=== PATIENT | female | born 1970 | race Caucasian/White ===

== ENCOUNTER 2018-01-30 12:00 | Outpatient (REF) | payer BC, SELFPAY ==
--- NOTE | 2018-01-30 11:00 | PAPFT_PTH ---
PATIENT: Shirlene Gregorio LOC: [facility] U#:[id number] AGE/SX: 47/F ROOM: RE01/30/[address]: Raeann Edwards MD, DC : 1970 BED: DIS: 01/30/2018 SPEC #: [id number] RECD: 01/30/18 12:45 STATUS: LIANNE RECassy #: [id number] SHASHA: 01/30/18 11:[address]: Raeann Edwards DEPT: [facility] Cytology RECD BY: Najma Finley Tissues: 1 - CX/ENDOCX FOR PAP SMEARS Procedures: PAP THIN PREP/UVM Screening HPV DNA PROBE Comments: [id number]
== END 2018-01-30 12:20 ==
LOC: LBN 12:00
PROVIDERS: PCP Family Medicine; Visit Provider Family Medicine
DX: Z12.4 Encounter for screening for malignant neoplasm of cervix (principal); Z11.51 Encounter for screening for human papillomavirus (HPV)
CPT/HCPCS: 88142; 87624

== ENCOUNTER 2018-01-30 13:18 | Outpatient (CLI) | payer BC, SELFPAY ==
--- NOTE | 2018-01-30 13:12 | DI.RAD_ITS ---
SYMPTOM/DIAGNOSIS: RT SHOULDER PAIN, M25.511 RIGHT SHOULDER: 01/30 Five views were obtained. There are minimal degenerative changes of the glenohumeral and acromioclavicular joins. No other significant findings.
== END 2018-01-30 13:38 ==
PROVIDERS: PCP Family Medicine; Visit Provider Family Medicine
DX: M25.511 Pain in right shoulder (principal); M19.011 Primary osteoarthritis, right shoulder
CPT/HCPCS: 73030

== ENCOUNTER 2018-08-07 00:56 | Outpatient (CLI) | payer BC, SELFPAY ==
--- NOTE | 2018-08-07 08:54 | DI.MRI_ITS ---
SYMPTOM/DIAGNOSIS: RT SHOULDER PAIN, M25.511, ? ROTATOR CUFF TEAR RIGHT SHOULDER MRI: Routine noncontrast examination was performed. The supraspinatus, infraspinatus, teres minor and subscapularus tendons are all intact. There is no evidence of a rotator cuff tear. The rotator cuff muscles show normal signal and size. No significant muscular fatty atrophy is identified. The biceps tendon has a normal appearance and location. The glenoid labrum is grossly unremarkable on this noncontrast examination. There are hypertrophic changes seen at the acromioclavicular joint. Marrow signal is otherwise within normal limits. No evidence of an occult fracture or avascular necrosis is seen. The ligaments appear intact. The articular cartilage at the glenohumeral joint appears grossly unremarkable. No soft tissue mass or focal fluid collection is appreciated. There is a trace amount of fluid seen in the subacromial bursa. IMPRESSION: 1. No evidence of a rotator cuff or labral tear on this noncontrast examination. 2. Mild degenerative changes of the acromioclavicular joint. 3. Small amount of fluid seen in the subacromial bursa which may represent a bursitis.
== END 2018-08-07 01:16 ==
PROVIDERS: PCP Family Medicine; Visit Provider Student in an Organized Health Care Education/Training Program
DX: M25.511 Pain in right shoulder (principal); M19.011 Primary osteoarthritis, right shoulder; M75.51 Bursitis of right shoulder
CPT/HCPCS: 73221

== ENCOUNTER 2019-10-26 08:40 | Outpatient (CLI) | payer SELFPAY ==
[2019-10-27 11:23] LABS: COVID-19 RT-PCR UVMMC Result Negative (Negative)
== END 2019-10-26 09:00 ==
PROVIDERS: PCP Family Medicine; Visit Provider Family Medicine
DX: Z11.59 Encounter for screening for other viral diseases (principal)
CPT/HCPCS: U0003

== ENCOUNTER 2020-08-21 03:42 | Outpatient (CLI) | payer SELFPAY ==
[2020-08-21 12:40] LABS: HCT 39.6 % (36.0-46.0); HGB 13.1 g/dL (11.2-15.7); MCH 29.8 pg (27.0-33.0); MCHC 33.1 % (32.0-36.0); MCV 90.2 fL (80-95); MPV 9.8 fL (8.0-11.0); Platelet Count 267 10^3/uL (130-400); RBC 4.39 10^6/uL (3.93-5.22); RDW 12.2 % (11.7-14.6); RDW-SD 40.3 fL; WBC 5.99 10^3/uL (4.4-10.8)
[2020-08-21 12:51] LABS: Iron 65 ug/dL (50-170); Total Iron Binding Capacity 349 ug/dL (250-450); Transferrin Sat 19 % (15-50)
[2020-08-21 12:53] LABS: Hemoglobin A1C 5.4 % (<5.7)
[2020-08-21 13:14] LABS: Vitamin D 25 Total 21.9 ng/mL (30-100)
[2020-08-21 13:16] LABS: ALT 39 U/L (14-59); AST 30 U/L (15-37); Albumin 3.7 g/dL (3.4-5.0); Alkaline Phosphatase 72 U/L (46-116); BUN 14 mg/dL (7-18); Bilirubin, Total 0.4 mg/dL (0.2-1.0); Calcium 8.7 mg/dL (8.5-10.1); Calculated LDL 86 mg/dL (<100); Chloride 105 mmol/L (98-107); Cholesterol 154 mg/dL (<200); Estimated GFR 58.69 (mL/min/1.73m2); Ferritin 66 ng/mL (8-252); Folate 18.7 ng/mL (8.6-20.0); Glucose 98 mg/dL (74-106); HDL Cholesterol 55 mg/dL (40-60); Potassium 4.4 mmol/L (3.5-5.1); Sodium 140 mmol/L (136-145); TSH (W/Ref FT4) 1.82 uIU/mL (0.36-3.74); Total Protein 7.6 g/dL (6.4-8.2); Triglyceride 68 mg/dL (<150); Vitamin B12 329 pg/mL (193-986)
[2020-08-21 14:06] LABS: Absolute Basophil Count 0.03 10^3/uL (0.0-0.2); Absolute Eosinophil Count 0.15 10^3/uL (0.0-0.7); Absolute Lymphocyte Count 1.78 10^3/uL (1.2-3.4); Absolute Monocyte Count 0.77 10^3/uL (0.1-0.8); Absolute Neutrophil Count 3.13 10^3/uL (1.2-6.7); Basophils % 0.5; Eosinophils % 2.6; Lymphocytes % 30.4; Monocytes % 13.1; Neutrophils % 53.4
[2020-08-23 10:28] LABS: Thiamine (Vitamin B1), WB 149 nmol/L (70-180)
== END 2020-08-21 03:43 | disposition home or self-care (01) ==
LOC: LOS 03:42
PROVIDERS: PCP Family Medicine; Visit Provider Family Medicine
DX: Z00.00 Encounter for general adult medical examination without abnormal findings (principal); E11.9 Type 2 diabetes mellitus without complications; G47.30 Sleep apnea, unspecified; G43.009 Migraine without aura, not intractable, without status migrainosus
CPT/HCPCS: 36415; 80053; 80061; 82306; 85027; 82607; 82728; 82746; 83036; 83540; 83550; 84425; 84443; 85007

== ENCOUNTER 2021-04-09 01:46 | Outpatient (CLI) | payer BC, SELFPAY ==
--- NOTE | 2021-04-09 10:52 | DI.MAMMO_ITS ---
Exam(s) MAMMO SCREENING EXAM: MAMMO SCREENING CLINICAL HISTORY: screening,Z12.39. TECHNIQUE: Bilateral full field digital CC and MLO mammographic images were obtained with 3D tomosyn thesis and utilizing computer aided detection (CAD). COMPARISON: None. This is a baseline mammogram on this 50-year-old patient. FINDINGS: No significant radiograph findings in the right breast. Left breast there is some asymmetric tissue at approximately 12 o'clock position. Located 8 cm in fr om nipple on MLO view. Recommend spot compression CC and MLO views as well as a straight lateral vie w of the left breast. Also possible ultrasound. There are benign microcalcifications in both breasts but no malignant-appearing microcalcification gr oups. No skin thickening-retraction. IMPRESSION: No radiographic evidence of malignancy in the right breast. Left breast findings as above. Spot compression views recommended. Also breast ultrasound. BI-RADS Category 0 - Assessment Incomplete: Need additional imaging evaluation Breast Density - Category C - Heterogeneously dense Breast density Category C or D implies that the patient has dense breast tissue. Dense breast tissue can make it harder to find cancer on a mammogram. Dense breast tissue is also associated with an incr eased risk of breast cancer. This information about the result of the mammogram report was provided to the patient to raise their awareness. Use this report when you speak with the patient about their risks for breast cancer, which includes their family history. At that time, you may recommend additional screening tests (Ultrasoun d or MRI) as these tests may add significant information. A negative radiographic report should not delay biopsy if a dominant or clinically suspicious mass is present. Up to ten percent of cancers are not identified on mammography. A negative report may reinforce clinical impression. Adenosis and dense breasts may obscure an underlying neoplasm. False positive reports average 6 to 10%. Patient will receive a letter notifying them of these results.
--- NOTE | 2021-04-17 | DI.US_ITS ---
Exam(s) MG MAMMO SCREEN CALL BACK UNI US BREAST LT COMPLETE EXAM: MG MAMMO SCREEN CALL BACK UNI and U/S breast LT complete CLINICAL HISTORY: ASYMMETRIC TISSUE 12 O'CLOCK POSITION 8 CM FROM NIPPLE, LT BREAST, R92.8. TECHNIQUE: Craniocaudal and mediolateral oblique Full Field Digital Mammography views of the left br east with Computer Aided Diagnosis followed by Tomosynthesis and left breast ultrasound. COMPARISON: Priors available for comparison. FINDINGS: Mammography/Tomosynthesis: Masses/Architectural Distortion: None seen. Microcalcifictions: No suspicious pleomorphic-type are seen. Skin Thickening/Nipple Retraction: None. Left breast US: A complete left breast ultrasound was performed. Echotexture: Normal appearance of the glandular tissue. Shadowing: No suspicious foci. Cyst: None. Solid lesions: None seen. Ductal dilation: None. IMPRESSION: 1. No evidence of malignancy is noted. 2. Unless there is more urgent need, follow-up screening mammography is recommended, as per [place] [employer] guidelines. 3. The findings were discussed with the patient on the date of the examination. BI-RADS Category 1 - Negative Breast Density - Category C - Heterogeneously dense Breast density Category C or D implies that the patient has dense breast tissue. Dense breast tissue can make it harder to find cancer on a mammogram. Dense breast tissue is also associated with an incr eased risk of breast cancer. This information about the result of the mammogram report was provided to the patient to raise their awareness. Use this report when you speak with the patient about their risks for breast cancer, which includes their family history. At that time, you may recommend additional screening tests (Ultrasoun d or MRI) as these tests may add significant information. A negative radiographic report should not delay biopsy if a dominant or clinically suspicious mass is present. Up to ten percent of cancers are not identified on mammography. A negative report may reinforce clinical impression. Adenosis and dense breasts may obscure an underlying neoplasm. False positive reports average 6 to 10%. Patient will receive a letter notifying them of these results.
== END 2021-04-09 02:06 ==
PROVIDERS: PCP Family Medicine; Visit Provider Family Medicine
DX: Z12.31 Encounter for screening mammogram for malignant neoplasm of breast (principal); R92.8 Other abnormal and inconclusive findings on diagnostic imaging of breast
CPT/HCPCS: 77063; 77067

== ENCOUNTER 2021-04-17 00:59 | Outpatient (CLI) | payer BC, SELFPAY ==
--- NOTE | 2021-04-17 13:00 | DI.MAMMO_ITS ---
Exam(s) MG MAMMO SCREEN CALL BACK UNI US BREAST LT COMPLETE EXAM: MG MAMMO SCREEN CALL BACK UNI and U/S breast LT complete CLINICAL HISTORY: ASYMMETRIC TISSUE 12 O'CLOCK POSITION 8 CM FROM NIPPLE, LT BREAST, R92.8. TECHNIQUE: Craniocaudal and mediolateral oblique Full Field Digital Mammography views of the left br east with Computer Aided Diagnosis followed by Tomosynthesis and left breast ultrasound. COMPARISON: Priors available for comparison. FINDINGS: Mammography/Tomosynthesis: Masses/Architectural Distortion: None seen. Microcalcifictions: No suspicious pleomorphic-type are seen. Skin Thickening/Nipple Retraction: None. Left breast US: A complete left breast ultrasound was performed. Echotexture: Normal appearance of the glandular tissue. Shadowing: No suspicious foci. Cyst: None. Solid lesions: None seen. Ductal dilation: None. IMPRESSION: 1. No evidence of malignancy is noted. 2. Unless there is more urgent need, follow-up screening mammography is recommended, as per [place] [employer] guidelines. 3. The findings were discussed with the patient on the date of the examination. BI-RADS Category 1 - Negative Breast Density - Category C - Heterogeneously dense Breast density Category C or D implies that the patient has dense breast tissue. Dense breast tissue can make it harder to find cancer on a mammogram. Dense breast tissue is also associated with an incr eased risk of breast cancer. This information about the result of the mammogram report was provided to the patient to raise their awareness. Use this report when you speak with the patient about their risks for breast cancer, which includes their family history. At that time, you may recommend additional screening tests (Ultrasoun d or MRI) as these tests may add significant information. A negative radiographic report should not delay biopsy if a dominant or clinically suspicious mass is present. Up to ten percent of cancers are not identified on mammography. A negative report may reinforce clinical impression. Adenosis and dense breasts may obscure an underlying neoplasm. False positive reports average 6 to 10%. Patient will receive a letter notifying them of these results.
== END 2021-04-17 01:19 ==
PROVIDERS: PCP Family Medicine; Visit Provider Family Medicine
DX: Z12.31 Encounter for screening mammogram for malignant neoplasm of breast (principal); R92.8 Other abnormal and inconclusive findings on diagnostic imaging of breast
CPT/HCPCS: 76642; 77063; 77067

== ENCOUNTER 2021-06-05 01:19 | Outpatient (CLI) | payer BC, SELFPAY ==
[2021-06-05 11:39] LABS: Source Nasal/Nares
[2021-06-05 13:51] LABS: COVID-19 PCR Negative (Negative)
== END 2021-06-05 01:20 | disposition home or self-care (01) ==
PROVIDERS: PCP Family Medicine; Visit Provider Surgery
DX: Z20.822 Contact with and (suspected) exposure to COVID-19 (principal); Z01.818 Encounter for other preprocedural examination
CPT/HCPCS: 87635

== ENCOUNTER 2021-06-08 07:42 | Day surgery (SDC) | payer BC, SELFPAY ==
--- NOTE | 2021-06-08 06:42 | HPE_ITS ---
Assessment and Plan Assessment and plan (1) Encounter for screening colonoscopy: Status: Acute Assessment and plan: The patient is here for Colonoscopy pre-op. She has no family history of colon cancer. She has not had any bowel habit changes. -Discussed colonoscopy bowel prep as well as the procedure. Discussed possible complications of the procedure to include bleeding, pain, perforation, missed small lesion/polyp, sore throat, aspiration and adverse reaction to the medications. Questions were answered to patient?s satisfaction. No guarantees were implied or given. P// Colonoscopy under sedation. History of Present Illness Narrative: 50 y/o female with history of anxiety, miagraines and sleep apnea presents for her first colonoscopy screening pre-op. She denies a family history of colon cancer. She denies any changes in bowel habits including bloody or black tarry stools, abdominal pain, diarrhea or constipation. She denies constitutional symptoms. Denies use of marijuana or any other recreational or illegal drugs. She denies chest pain, palpitations, dyspnea or dyspnea with exertion. She denies prior history or family history of adverse reactions or complications with anesthesia. The patient denies any history of stroke, VA, bleeding or clotting disorders. She denies having any implanted metal in her body. There have been no new health concerns since she was seen in the office. Review of Systems Cardiovascular Cardiovascular: Denies chest pain, Denies chest pain at rest, Denies irregular heart rhythm, Denies dyspnea and Denies dyspnea on exertion Respiratory Respiratory: Denies cough, Denies dyspnea and Denies dyspnea on exertion Gastrointestinal Gastrointestinal: Reports as per HPI Genitourinary Genitourinary: Denies dysuria, Denies urinary incontinence and Denies urinary urgency Endocrine Endocrine: Reports system reviewed and no additional complaints, except as documented Hematologic/Lymphatic Hematologic/Lymphatic: Denies easy bruising and Denies lymphadenopathy [facility] All Active Problems Anxiety (Chronic 06/17/16) 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) [facility] [place] [facility] Chronic pain of left knee (Chronic 08/14/15) Insomnia disorder, with other sleep disorder, recurrent (Chronic 08/16/16) Migraine without aura and without status migrainosus, not intractable (Chronic 10/23/15) Sleep apnea (Chronic 10/17/14) [facility] [place];SLEEP [facility]AG[facility] Vitamin D deficiency (Chronic 10/06/11) Annual physical exam (Acute) Encounter for screening colonoscopy (Acute) Vertigo (Acute) Herpes zoster (Acute) Medical History Anemia 10/06/11 Anemia (10/06/11) Calculus of gallbladder and bile duct w/cholecystitis w/o obstruction (10/12/17) Common bile duct stone (10/12/17) Fatigue (07/11/17) History of seizure 08/14/15 History of seizure (08/14/15) 10 years old Lateral epicondylitis of left elbow (08/14/15) Left tennis elbow 08/14/15 Right rotator cuff tendonitis Right shoulder pain Sebaceous cyst 02/10/15 Sebaceous cyst (02/10/15) Vertigo 08/04/15 Vertigo (08/14/15) Surgical History Arthroplasty of knee 09/04 RIGHT 1994 RIGHT H/O arthroscopy of knee right x 2 ---1994; 2005 History of arthroscopy of knee Hx of cholecystectomy Repair, ACL (~2005) Family History Mother No problems noted. Father , age 78 Heart disease Myocardial infarction Neoplasm BLADDER Sister Depression Brother No problems noted. Maternal Grandfather No problems noted. Paternal Grandfather Heart disease Maternal Grandmother Diabetes Paternal Grandmother Heart disease Sister No problems noted. Sister No problems noted. Sister No problems noted. Son No problems noted. Son No problems noted. Social History Smoking/Tobacco Use Status: Never Second Hand Exposure: Yes (as a child) Smoking risk assessment performed?: Yes Alcohol Intake: current Alcohol Intake frequency: 0-2 drinks per day Alcohol type: wine and hard liquor Drug use: Never Substance use type: does not use Caregiver/Support person: No Household members: significant other and other Details: DONI AND ESTEPHANIE Housing: house Communication Needs: None current occupation: [employer] Pets and animals: Yes Pets and animals: farm animals Sexually active: Yes Do you think of yourself as: straight/heterosexual Current gender identity: female What is your relationship status?: living with partner How often do you talk on the phone with friends or family?: three or more times per week How often do you get together with friends or relatives?: twice per week How often do you attend catholic or congregational services?: decline to answer Do you belong to any clubs or organized social groups?: yes Panel score (0-1 are the most socially isolated patients): 3 What type of physical activity do you participate in: none Duration: < 15 minutes/day Cari/Hinduism: No preference Special cari needs: No Seatbelt use: always Drive intox or ride w/intox local bulk driver: No Do you feel safe at home: Yes Do you feel safe in your relationship?: Yes Meds Allergies and Home Medications Allergies Allergy/AdvReac Type Severity Reaction Status Date / Time No Known Allergies Allergy Unverified 06/08/21 08:07 Home Medications Medication Instructions Recorded Confirmed Type bupropion HCl 300 mg 24 hr tablet, 300 mg PO DAILY #90 tab-cap 06/05/20 06/08/21 Rx extended release valacyclovir 1 gram tablet 1,000 mg PO TID #21 tab 03/17/21 06/08/21 Rx bisacodyl 5 mg tablet,delayed 5 mg PO ONCE #4 tab 04/20/21 06/08/21 Rx release multivitamin 1 tab PO DAILY 04/20/21 06/08/21 History polyethylene glycol 3350 17 238 g PO ONCE #238 g 04/20/21 06/08/21 Rx gram/dose oral powder nystatin 100,000 unit/gram topical 1 applic TOPICAL BID #30 g 05/01/21 06/08/21 Rx powder Exam Const General: healthy appearing and comfortable Resp Effort & Inspection: normal respiratory effort Auscultation: clear to auscultation bilaterally Cardio Rate: regular rate Rhythm: regular rhythm Heart Sounds: no click, no gallops and no murmurs
--- NOTE | 2021-06-08 06:45 | W.COLOREPORT ---
Colonoscopy Report Date of procedure: 06/08/21 Pre-op diagnosis general: Colon Cancer Screening Post-op diagnosis procedure note: other (rectal polyps) Procedure: Colonoscopy with polypectomy Surgeon: Chela Rivera Anesthesia Type: General:No Airway (Arleen Moon CRNA) Estimated blood loss (mL): 3 Pathology: other (rectal polyps x4) Complications: None Disposition: same day Indications: The patient is here for Colonoscopy pre-op. She has no family history of colon cancer. She has not had any bowel habit changes. -Discussed colonoscopy bowel prep as well as the procedure. Discussed possible complications of the procedure to include bleeding, pain, perforation, missed small lesion/polyp, sore throat, aspiration and adverse reaction to the medications. Questions were answered to patient?s satisfaction. No guarantees were implied or given. Prep: Miralax/Dulcolax Procedure Start Time: 09:39 Procedure End Time: 10:05 Retraction Time: 14 minutes Findings: 4 small rectal polyps Procedure Description: After informed consent was obtained the patient was taken to the procedure room and placed in a left decubitous position. Monitors were applied and a time out was done. The patients name, date of , procedure, allergies to medications and metal in their body was reviewed. The patient was then sedated. Once sedated and comfortable a rectal exam was done. External exam was normal. Internal exam revealed a normal sphincter tone and no palpable masses. The scope was then introduced and retro-flexed. No internal hemorrhoids, polyps or masses were identified on retro-flexion. The scope was then advanced to the cecum without difficulty. The ileocecal vlave and appendiceal orifice were identified. The prep was good. The scope was then slowly retracted over 14 minutes back into the rectum. Polyps were removed with cold forceps in the rectum x4. There was no diverticulosis noted. The scope was removed and the patient was woken up and taken back to Same day surgery in stable condition. The patient tolerated the procedure well and there were no immediate complications. Follow up: The patient should follow up in 5-10 years, depending on the pathology results, unless they develop changes in bowel habits or other new gastrointestinal complaints.
--- NOTE | 2021-06-08 06:46 | W.PM.DSUDISC ---
Discharge Plan Disposition Patient Disposition: HOME Condition: Good Discharge Details Reason For Visit: Colonoscopy Attending Provider: Chela Rivera Primary Care Provider: Raeann Edwards Home Meds and New Rx's Prescriptions: Continued bupropion HCl 300 mg tablet extended release 24 hr 300 mg PO DAILY Qty: 90 RF: 12 multivitamin [Daily Multi-Vitamin] Tablet 1 tab PO DAILY RF: 0 valacyclovir 1 gram tablet 1,000 mg PO TID Qty: 21 RF: 0 nystatin 100,000 unit/gram powder 1 applic topical BID Qty: 30 RF: 0 Discontinued polyethylene glycol 3350 17 gram/dose powder 238 g PO ONCE Qty: 238 RF: 0 bisacodyl [Dulcolax (bisacodyl)] 5 mg tablet,delayed release (DR/EC) 5 mg PO ONCE Qty: 4 RF: 0 Discharge Instructions Instructions: Colorectal Polyps (DC) Additional Instructions: Findings: 4 small polyps Results: you will recieve a letter in the mail in about 10-14 days with your results Please call if you develop: fevers >101.5 Nausea or Vomiting Abdominal pain that is not transient Rectal bleeding that is more then a tbsp A hard abdomen and inability to pass gas DAY SURGERY UNIT POST ENDOSCOPY INSTRUCTIONS Instructions for everyone who is given Anesthesia: For your safety, please do the following for the next 24 Hours: a. Do not drive or operate dangerous equipment b. Do not drink alcohol beverages or use any recreational drugs for the first 24 hours or while taking pain medications. The medications in your body may have a reaction that can be dangerous. c. Do not make any important decisions or sign any important papers 1. Generally there are no restrictions on your activity after a day or so has gone by, but you may feel a bit fatigued for a few days. 2. After you arrive home you may have a light meal and return to a normal diet as you can tolerate it without feeling sick to your stomach. 3. After surgery, you may feel pain or discomfort. This should be only transient, but if it persists please contact your doctor. 4. If there are any questions regarding the findings of your procedure, please feel free to contact your doctor. 6. If you are unable to contact your doctor with a problem, contact the hospital at [phone]. 7. Continue all your regular medications unless directed otherwise. I understand the above instructions and have no questions. Signature of Patient or Responsible Adult Escort Date/Time Name of Responsible Adult Escort Signature of Nurse Date/Time Activity:: Activity as Tolerated Diet:: As Tolerated Discharge Orders Discharge Orders: Discharge Order (Routine); Ordered 06/08/21 Ordered By: Chela Rivera DS: Diagnosis Discharge Diagnosis (1) Encounter for screening colonoscopy: Status: Acute
[2021-06-08 08:08] VITALS: BP 134/82; PULSE 95; RESP 18; TEMP 36.3; O2SAT 98
[2021-06-08] MEDS: Lactated Ringers 1,000 ML 80 ML IV (08:23)
--- NOTE | 2021-06-08 08:45 | ANES.PREOP_ITS ---
General Info Date of Service Date Performed: 06/08/21 Height: 5 ft 8 in Weight: 115.2 kg Body Mass Index (BMI): 38.6 Surgical Procedure: Operation Date: 06/08/21 09:50 Proposed Procedures Side Surgeon bud Rivera MD Meds Allergies and Home Medications Allergies Allergy/AdvReac Type Severity Reaction Status Date / Time No Known Allergies Allergy Unverified 06/08/21 08:07 Home Medication Medication Instructions Recorded bupropion HCl 300 mg 24 hr tablet, 300 mg PO DAILY #90 tab-cap 06/05/20 extended release valacyclovir 1 gram tablet 1,000 mg PO TID #21 tab 03/17/21 bisacodyl 5 mg tablet,delayed 5 mg PO ONCE #4 tab 04/20/21 release multivitamin 1 tab PO DAILY 04/20/21 polyethylene glycol 3350 17 238 g PO ONCE #238 g 04/20/21 gram/dose oral powder nystatin 100,000 unit/gram topical 1 applic TOPICAL BID #30 g 05/01/21 powder Current Visit Medications: Current Medications Generic Name Dose Route Start Last Admin Trade Name Freq PRN Reason Stop Dose Admin Hyoscyamine Sulfate 0.125 mg 06/08/21 06:46 Hyoscyamine 0.125 Mg Sl/Oral/Chew SL DIRECTED PRN Ringer's Solution 1,000 mls @ 80 mls/hr 06/08/21 06:00 06/08/21 08:23 IV 07/05/21 23:59 80 mls/hr INFUSION NELL Administration IV Miscellaneous Supplies 1 each 06/08/21 06:00 Iv Access IV 07/05/21 23:59 DIRECTED NELL Ondansetron HCl 4 mg 06/08/21 06:46 Ondansetron 4 Mg/2 Ml Vial IVP Q4H PRN PRN Nausea / Vomiting Sodium Chloride 0 ml 06/08/21 06:00 Normal Saline Flush 10 Ml Syr IV 07/05/21 23:59 PRN PRN Sodium Chloride 0 ml 06/08/21 06:00 Normal Saline 10 Ml Vial IJ 07/05/21 23:59 DIRECTED PRN Sterile Water 0 ml 06/08/21 06:00 Water,Injection,Sterile 10 Ml Vial IJ 07/05/21 23:59 DIRECTED PRN PFSH Active Problems Active Problems: Problem Status Onset Code Anxiety 06/17/16 F41.9 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 Chronic pain of left knee 08/14/15 M25.562, G89.29 Insomnia disorder, with other sleep disorder, recurrent 08/16/16 G47.00 Migraine without aura and without status migrainosus, not intractable 10/23/15 G43.009 Sleep apnea 10/17/14 G47.30 Vitamin D deficiency 10/06/11 E55.9 Annual physical exam Z00.00 Encounter for screening colonoscopy Z12.11 Vertigo R42 Herpes zoster B02.9 Medical History Medical History Anemia 10/06/11 Anemia (10/06/11) Calculus of gallbladder and bile duct w/cholecystitis w/o obstruction (10/12/17) Common bile duct stone (10/12/17) Fatigue (07/11/17) History of seizure 08/14/15 History of seizure (08/14/15) 10 years old Lateral epicondylitis of left elbow (08/14/15) Left tennis elbow 08/14/15 Right rotator cuff tendonitis Right shoulder pain Sebaceous cyst 02/10/15 Sebaceous cyst (02/10/15) Vertigo 08/04/15 Vertigo (08/14/15) Surgical History Surgical History Arthroplasty of knee 09/04 RIGHT 1994 RIGHT H/O arthroscopy of knee right x 2 ---1994; 2005 History of arthroscopy of knee Hx of cholecystectomy Repair, ACL (~2005) Tobacco Smoking/Tobacco Use Status: Never Passive smoking exposure: Yes (as a child) Second hand exposure: Yes (as a child) Alcohol Alcohol Intake: current Alcohol intake frequency: 0-2 drinks per day Alcohol type: wine and hard liquor Substance Use Substance use: Never Substance use type: does not use Vital Signs and Lab Results Vital Signs Most Recent Vital Signs in EMR: Most Recent Vital Signs Temp Pulse Resp BP Pulse Ox 36.3 C L 95 H 18 134/82 98 06/08/21 08:08 06/08/21 08:08 06/08/21 08:08 06/08/21 08:08 06/08/21 08:08 Point of Care Results Point of Care Results: POC- Test(urine) Negative 06/08/21 08:00 Lab Results Blood Type / Crossmatch: No Data to Display Complete Blood Count: No Data to Display Complete Metabolic Panel: No Data to Display Liver Function Panel: No Data to Display Coagulation Panel: No Data to Display Cardiac Panel: No Data to Display Arterial Blood Gas: No Data to Display Venous Blood Gas: No Data to Display Pancreas Panel: No Data to Display Thyroid Panel: No Data to Display Infectious Disease: Coronavirus (COVID-19)(PCR) Negative (Negative) 06/05/21 09:02 06/05/21 Coronavirus 2019 Source Nasal/Nares 06/05/21 09:02 06/05/21 Blood Cultures: No Data to Display Toxicology Panel: No Data to Display Panel: No Data to Display Imaging and Studies Imaging and Studies Study information below may be from another EMR and interpreted by another provider. Please see original notes in EMR for more complete details. Stress Test Summary: STRESS TEST PATIENT NAME: ZULEYMA HINOJOSA #: [id number] ADMITTING PROVIDER: GARCIA VIERA,PhD,[facility] #: [id number] PRIMARY CARE PROVIDER:Raeann Edwards M.D., DCDATE OF SERVICE: 10/12/17 : 1970 *[facility]* *[facility]* [address] [place] [address] Stress Electrocardiography David protocol Date of study: 10/12/2017 *PATIENT PRESENTATION* Height: 172.7cm (68in) Blood Pressure: Weight: 107.3kg (236lb) BSA: 2.31m^2 Ordering physician: Raeann Edwards Impressions: Normal study after maximal exercise. Summary: 1. Stress ECG conclusions: The stress ECG is negative. Avila treadmill score: 10. This score predicts a low risk of cardiac events. 2. Stress: The target heart rate was achieved. The heart rate response to stress is normal. There is a normal resting blood pressure with an appropriate response to stress. The patient experienced no chest pain during stress. Exercise capacity is good (11 METS). Anesthesia Assessment and Plan Anesthesia History Personal History: No History of Anesthesia Complications Family History: No Family History of Anesthesia Complications Exercise Tolerance Exercise Tolerance: Metabolic Equivalents>4 Pertinent Negatives Pertinent Negatives: No Major Cardiovascular Symptoms or Complaints and No Major Pulmonary Symptoms or Complaints Cardiac & Pulmonary Exam Cardiac Exam: Normal S1/S2 Heart Sounds Pulmonary Exam: Clear Bilateral Breath Sounds Implantable Cardiac Device Does patient have a Pacemaker or an ICD?: No Airway Exam Known Difficult Airway: No Mallampati Class: 2 Mouth Opening: Normal (> 3cm) Thyromental Distance: Greater than 3 cm Neck Range of Motion: Full ROM Neck Circumference: Thick Teeth Condition: Normal Dentition ASA Classification ASA Score: ASA 2 Emergency Case?: No NPO Status NPO Status: NPO Clears >2 hours, Solids >8 hours Status Status: Not Per Patient Anesthesia Plan Resuscitation Status: Full Code Anesthesia Technique: General Anesthesia Airway Planned: Natural Airway Monitors Used: Standard Monitors
[2021-06-08 08:46] VITALS: BMI 38.6
--- NOTE | 2021-06-08 09:50 | BOWEL_PTH ---
PATIENT: Shirlene Gregorio LOC: [facility] U#:[id number] AGE/SX: 50/F ROOM: RE06/08/[address]: Chela Rivera MD : 1970 BED: DIS: 06/08/2021 SPEC #: [id number] RECD: 06/08/21 12:47 STATUS: JIGNAAlyssa RE #: [id number] SHASHA: 06/08/21 09:[address]: Chela Rivera DEPT: Surgical Specimen RECD BY: Najma Finley ENTERED: 06/08/21 12:48 SP TYPE: Bowel OTHR DR: Raeann Edwards MD, DC Tissues: 1 - BIOPSY BOWEL Procedures: GROSS AND MICRO LEVEL 4 Comments: [id number]
[2021-06-08 10:13] VITALS: BP 108/77; PULSE 71; RESP 16; TEMP 36.2; O2SAT 98
--- NOTE | 2021-06-08 10:21 | W.ANESPOSTOP ---
Postoperative Evaluation Date, Time and Location Date Performed: 06/08/21 Time Performed: 10:15 Patient Location: Day Surgery Unit Vital Signs Most Recent Imported Vital Signs: Most Recent Vital Signs Temp Pulse Resp BP Pulse Ox 36.2 C L 71 16 108/77 98 06/08/21 10:13 06/08/21 10:13 06/08/21 10:13 06/08/21 10:13 06/08/21 10:13 Pain Score Most Recent Pain Score: Most Recent Pain Score Pain Level 0 06/08/21 10:13 Assessment Mental Status: Awake (Alert & Oriented to Patient Baseline) Airway and Respiratory Function: Patent airway with normal (patient baseline) respiratory exam Cardiovascular Function: Hemodynamically Stable Hydration Status: Adequately Hydrated Nausea & Vomiting: No Nausea or Vomiting Pain: Pt. Denies Any Pain Peripheral Nerve Block: Patient did not receive a nerve block
[2021-06-08 10:44] VITALS: BP 119/75; PULSE 74; RESP 16; TEMP 36.5; O2SAT 98
== END 2021-06-08 11:25 | disposition home or self-care (01) ==
LOC: SUR 07:43
PROVIDERS: PCP Family Medicine; Visit Provider Surgery
PROC: 0DJD8ZZ Inspection of Lower Intestinal Tract, Via Natural or Artificial Opening Endoscopic (ICD-10-PCS; CPT 45378; principal; 2021-06-08 09:45)
DX: Z12.11 Encounter for screening for malignant neoplasm of colon (principal); K62.1 Rectal polyp
CPT/HCPCS: 45380; 88305; J2001; J2704

== ENCOUNTER 2021-07-09 09:54 | Outpatient (CLI) | payer BC, SELFPAY ==
--- NOTE | 2021-07-09 09:15 | DI.RAD_ITS ---
Exam(s) XR KNEE RT 3V AP,LAT,CHUCK EXAM: XR KNEE RT 3V AP,LAT,CHUCK CLINICAL HISTORY: RIGHT KNEE PAIN TECHNIQUE: COMPARISON: No exams were available for comparison FINDINGS: Three views were obtained. There is severe narrowing of the cartilaginous joint space of the medial tibiofemoral joint. There is prior ACL reconstruction with fixation screw in the distal femur. Cart ilaginous joint spaces otherwise appear well maintained. Mild marginal osteophyte formation noted, m ost prominent at the medial tibiofemoral joint. IMPRESSION: DJD predominantly involving medial tibiofemoral joint. Mild varus angulation at the knee. RADIATION DOSE DELIVERED: Total DLP
== END 2021-07-09 09:55 | disposition home or self-care (01) ==
LOC: DIORS 09:54
PROVIDERS: PCP Family Medicine; Visit Provider Student in an Organized Health Care Education/Training Program
DX: M25.561 Pain in right knee (principal); M17.11 Unilateral primary osteoarthritis, right knee; Z98.890 Other specified postprocedural states
CPT/HCPCS: 73562

== ENCOUNTER 2021-08-31 12:48 | Outpatient (REF) | payer BC, SELFPAY ==
--- NOTE | 2021-08-31 09:00 | PAPFT_PTH ---
PATIENT: Shirlene Gregorio LOC: [facility] U#:[id number] AGE/SX: 51/F ROOM: RE08/31/[address]: Raeann Edwards MD, DC : 1970 BED: DIS: 08/31/2021 SPEC #: [id number] RECD: 09/01/21 10:58 STATUS: LIANNE REQ #: [id number] SHASHA: 08/31/21 09:[address]: Raeann Edwards DEPT: [facility] Cytology RECD BY: Najma Finley Tissues: 1 - CX/ENDOCX FOR PAP SMEARS Procedures: PAP THIN PREP/UVM Screening HPV DNA PROBE Comments: [id number]
== END 2021-08-31 12:49 | disposition home or self-care (01) ==
LOC: LBN 12:48
PROVIDERS: PCP Family Medicine; Visit Provider Family Medicine
DX: Z12.4 Encounter for screening for malignant neoplasm of cervix (principal); Z11.51 Encounter for screening for human papillomavirus (HPV)
CPT/HCPCS: 88142; 87624

== ENCOUNTER 2021-10-09 09:44 | Outpatient (CLI) | payer BC, SELFPAY ==
--- NOTE | 2021-10-09 08:15 | DI.RAD_ITS ---
Exam(s) XR KNEE LT 3V AP,LAT,CHUCK EXAM: XR KNEE LT 3V AP,LAT,CHUCK CLINICAL HISTORY: left knee pain. TECHNIQUE: 2D digital imaging was performed of the left knee. Three images were obtained. AP, late ral and PA tunnel views were obtained. COMPARISON: No previous for comparison. FINDINGS: BONES: No acute fracture is present. No bony destructive lesion is seen. JOINTS: The knee is normally aligned. There is a small joint effusion. There is mild spurring in the medial femoral tibial joint. SOFT TISSUE: Normal. IMPRESSION: Mild degenerative changes of the left knee. DATA REPOSITORY: RADIATION DOSE DELIVERED:
== END 2021-10-09 09:45 | disposition home or self-care (01) ==
LOC: DIORS 09:44
PROVIDERS: PCP Family Medicine; Referring Provider Family Medicine; Visit Provider Physician Assistant
DX: M25.562 Pain in left knee (principal); M25.462 Effusion, left knee; M76.892 Other specified enthesopathies of left lower limb, excluding foot
CPT/HCPCS: 73562

== ENCOUNTER → 2022-03-03 01:21 | Outpatient (CLI) | payer BC, SELFPAY ==
--- NOTE | 2022-03-03 07:15 | DI.RAD_ITS ---
Exam(s) RF BARIUM SWALLOW EXAM: RF BARIUM SWALLOW CLINICAL HISTORY: dysphagia,R13.10 TECHNIQUE: 2D and realtime digital imaging was performed. CONTRAST MATERIAL: Thick and thin barium and barium tablet were administered. COMPARISON: CR CHEST 2 VIEWS PA,LAT from 10/04/2017 CR XR shoulder RT complete 2+V from 01/30/2018 FINDINGS: The lateral printmaker view of the neck and PA and lateral chest printmaker views are unremarkable. Esophagus: The patient swallowed barium without difficulty. Noevidence for mucosal erosions. Nofold thickening. No mass is visible. Nostricture. Motility: There is a normal primary stripping wave. No tertiary contractions were noted. There is a small sliding hiatal hernia. Severegastroesophageal reflux was observed during the exam. IMPRESSION: Gastroesophageal reflux. Small sliding hiatal hernia. RADIATION DOSE DELIVERED: todd Cochran=9.35 mGy
[2022-03-03] MEDS: Barium Sulfate 700 MG TAB PO (09:46)
[2022-03-03] MEDS: Barium Sulfate 60% W/V 355 ML BTL PO (09:49)
== END ==
PROVIDERS: PCP Family Medicine; Visit Provider Family Medicine
DX: R13.10 Dysphagia, unspecified (principal); K21.9 Gastro-esophageal reflux disease without esophagitis; K44.9 Diaphragmatic hernia without obstruction or gangrene
CPT/HCPCS: 74221

== ENCOUNTER 2023-08-09 09:56 | Outpatient (CLI) | payer BC, SELFPAY ==
[2023-08-09 12:32] LABS: HCT 38.1 % (36.0-46.0); HGB 12.7 g/dL (11.2-15.7); MCH 29.5 pg (27.0-33.0); MCHC 33.3 % (32.0-36.0); MCV 89 fL (80-95); MPV 9.6 fL (8.0-11.0); Platelet Count 298 10^3/uL (130-400); RDW 12.8 % (11.7-14.6); RDW-SD 41.6 fL; WBC 4.96 10^3/uL (4.4-10.8)
[2023-08-09 13:04] LABS: ALT 40 U/L (14-59); AST 25 U/L (15-37); Albumin 3.5 g/dL (3.4-5.0); Alkaline Phosphatase 80 U/L (46-116); BUN 12 mg/dL (7-18); Bilirubin, Total 0.3 mg/dL (0.2-1.0); CREATININE 0.9 mg/dL (0.55-1.02); Calcium 8.7 mg/dL (8.5-10.1); Calculated LDL 89 mg/dL (<100); Chloride 103 mmol/L (98-107); Cholesterol 151 mg/dL (<200); Estimated GFR 76.44 (mL/min/1.73m2); Glucose 113 mg/dL (74-106); HDL Cholesterol 47 mg/dL (40-60); Potassium 4.2 mmol/L (3.5-5.1); Sodium 140 mmol/L (136-145); TSH (W/Ref FT4) 2.57 uIU/mL (0.36-3.74); Total Protein 7.9 g/dL (6.4-8.2); Triglyceride 76 mg/dL (<150)
== END 2023-08-09 09:57 | disposition home or self-care (01) ==
LOC: LOS 09:56
PROVIDERS: PCP Family Medicine; Referring Provider Family Medicine; Visit Provider Family Medicine
DX: Z00.00 Encounter for general adult medical examination without abnormal findings (principal); E11.9 Type 2 diabetes mellitus without complications
CPT/HCPCS: 36415; 80053; 80061; 85027; 83036; 84443

== ENCOUNTER → 2023-08-15 03:14 | Outpatient (CLI) | payer BC, SELFPAY ==
--- NOTE | 2023-08-15 07:00 | DI.MAMMO_ITS ---
Exam(s) MAMMO SCREENING EXAM: MAMMO SCREENING CLINICAL HISTORY: screening,z12.39 TECHNIQUE: Bilateral full field digital CC and MLO mammographic images were obtained with 3D tomosyn thesis and utilizing computer aided detection (CAD). COMPARISON: Available for comparison. FINDINGS: Masses/Architectural Distortion: There is a new well-circumscribed nodule in the lower inner retroare olar region of the left breast measuring 6 mm. No other nodules are seen. Microcalcifications: No suspicious pleomorphic-type are seen. Skin Thickening/Nipple Retraction: None. IMPRESSION: 1. New left breast nodule. 2. Spot compression views are requested for further evaluation. Limited left breast ultrasound shoul d also be obtained at that time. BI-RADS Category 0 - Assessment Incomplete: Need additional imaging evaluation Breast Density - Category B - Scattered areas of fibroglandular density Breast density category C or D implies that the patient has dense breast tissue. Dense breast tissue is very common and is not abnormal but dense breast tissue can make it harder to find cancer on a ma mmogram. Also, dense breast tissue may increase their breast cancer risk. This information about the result of the mammogram report was provided to the patient to raise their awareness. Use this report when you speak with the patient about their risks for breast cancer, which includes their family hist ory. At that time, you may recommend for more screening tests (Ultrasound or MRI) as they might be us eful based on their risk. A negative radiographic report should not delay biopsy if a dominant or clinically suspicious mass is present. Up to ten percent of cancers are not identified on mammography. A negative report may reinforce clinical impression. Adenosis and dense breasts may obscure an underlying neoplasm. False positive reports average 6 to 10%. Patient will receive a letter notifying them of these results.
== END ==
PROVIDERS: PCP Family Medicine; Visit Provider Family Medicine
DX: Z12.31 Encounter for screening mammogram for malignant neoplasm of breast (principal); R92.8 Other abnormal and inconclusive findings on diagnostic imaging of breast
CPT/HCPCS: 77063; 77067

== ENCOUNTER → 2023-08-29 01:59 | Outpatient (CLI) | payer BC, SELFPAY ==
--- NOTE | 2023-08-29 | DI.US_ITS ---
Exam(s) MG MAMMO SCREEN CALL BACK UNI US BREAST LT COMPLETE EXAM: MG MAMMO SCREEN CALL BACK UNI-LEFT AND COMPLETE LEFT BREAST ULTRASOUND CLINICAL HISTORY: NEW LT BREAST NODULE. TECHNIQUE: Unilateral LEFT BREAST spot mammographic images obtained with 3D tomosynthesisand utilizi ng computer aided detection (CAD). . Complete breast Ultrasound was also performed, including all 4 quadrants, the retroareolar region, a nd the ipsilateral axilla. COMPARISON: Prior mammograms were reviewed. This additional imaging was performed due to findings described on the recent screening mammogram of 08/15/2023. FINDINGS: DIAGNOSTIC MAMMOGRAM: Additional mammographic views performed todaydoes not dissipate the recently described nodule. We pr oceeded with ultrasound... COMPLETE LEFT BREAST ULTRASOUND: Ultrasound performed today reveals a solitary finding which is at the 8 o'clock position corresponds to the finding on the mammogram. This has the appearance of a benign 7 x 3 millimeter microcyst.. N o other ultrasound findings in all 4 quadrants. Scanning of the ipsilateral axilla reveals no significant adenopathy. IMPRESSION: 1. Benign findings. The nodule on the mammogram corresponds to a 7 x 3 millimeter benign microcyst on ultrasound. Appropriate follow-up is to keep this patient on a yearly mammogram schedule, with earlier imaging i f a self detected breast change is noted. The patient was informed of these findings and recommendations by myself prior to leaving the departm ent today. BI-RADS Category 2 - Benign Findings Breast Density - Category B - Scattered areas of fibroglandular density Breast density Category C or D implies that the patient has dense breast tissue. Dense breast tissue can make it harder to find cancer on a mammogram. Dense breast tissue is also associated with an incr eased risk of breast cancer. This information about the result of the mammogram report was provided to the patient to raise their awareness. Use this report when you speak with the patient about their risks for breast cancer, which includes their family history. At that time, you may recommend additional screening tests (Ultrasoun d or MRI) as these tests may add significant information. A negative radiographic report should not delay biopsy if a dominant or clinically suspicious mass is present. Up to ten percent of cancers are not identified on mammography. A negative report may reinforce clinical impression. Adenosis and dense breasts may obscure an underlying neoplasm. False positive reports average 6 to 10%. Patient will receive a letter notifying them of these results.
== END ==
PROVIDERS: PCP Family Medicine; Visit Provider Family Medicine
DX: Z12.31 Encounter for screening mammogram for malignant neoplasm of breast (principal); R92.8 Other abnormal and inconclusive findings on diagnostic imaging of breast
CPT/HCPCS: 76642; 77063; 77067

== ENCOUNTER 2024-02-20 11:07 | Outpatient (CLI) | payer BC, SELFPAY ==
[2024-02-20 09:48] LABS: Vitamin D 25 Total 37.1 ng/mL (30-100)
[2024-02-20 10:10] LABS: Hemoglobin A1C 5.1 % (<5.7)
== END 2024-02-20 11:08 | disposition home or self-care (01) ==
LOC: LBO 11:11
PROVIDERS: PCP Family Medicine; Visit Provider Family Medicine
DX: R73.01 Impaired fasting glucose (principal); E66.9 Obesity, unspecified; E55.9 Vitamin D deficiency, unspecified
CPT/HCPCS: 36415; 82306; 83036

== ENCOUNTER 2024-02-21 11:14 | Outpatient (CLI) | payer BC, SELFPAY ==
[2024-02-21 12:45] LABS: Iron 88 ug/dL (50-170)
[2024-02-21 12:56] LABS: Ferritin 49 ng/mL (8-252)
== END 2024-02-21 11:15 ==
PROVIDERS: PCP Family Medicine; Visit Provider Family Medicine
DX: E03.9 Hypothyroidism, unspecified (principal); R53.83 Other fatigue; Z23 Encounter for immunization
CPT/HCPCS: 36415; 82728; 83540; 84443

== ENCOUNTER 2024-04-10 14:45 | Outpatient (CLI) | payer BC, SELFPAY ==
--- NOTE | 2024-04-10 08:00 | DI.RAD_ITS ---
Exam(s) XR SHOULDER LT COMPLETE 2+V EXAM: XR SHOULDER LT COMPLETE 2+V CLINICAL HISTORY: LEFT SHOULDER PAIN. TECHNIQUE: 2D digital imaging was performed. Two views. COMPARISON: No exams were available for comparison FINDINGS: BONES: No acute fracture is present. No bony destructive lesion is seen. JOINTS: No dislocation present. Mild spurring at the AC joint. The glenohumeral joint space is main tained. No significant periarticular spurring. SOFT TISSUE: Normal. No joint space loose bodies are visible. IMPRESSION: Degenerative changes of the AC joint. DATA REPOSITORY: RADIATION DOSE DELIVERED:
== END 2024-04-10 14:46 | disposition home or self-care (01) ==
LOC: DIORS 14:45
PROVIDERS: PCP Family Medicine; Visit Provider Student in an Organized Health Care Education/Training Program
DX: M25.512 Pain in left shoulder (principal)
CPT/HCPCS: 73030

== ENCOUNTER 2024-04-24 02:48 | Outpatient (CLI) | payer BC, SELFPAY ==
--- NOTE | 2024-04-24 06:45 | DI.MRI_ITS ---
Exam(s) MR UPPER JOINT LT WO EXAM: MR UPPER JOINT LT WO CLINICAL HISTORY: L shoulder pain,LT ROTATOR CUFF TEAR,M75.102. TECHNIQUE: Multiplanar multisequence MRI was performed. COMPARISON: CR XR SHOULDER LT COMPLETE 2+V from 04/10/2024 FINDINGS: BONES: There is no fracture or contusion pattern. JOINTS: There are mild degenerative changes seen at the acromioclavicular joint. The glenohumeral waylon int is normal. TENDONS: Supraspinatus: There is very mild tendinosis of the supraspinatus tendon without evidence of full-thi ckness tear. Infraspinatus: Unremarkable. Subscapularis: Unremarkable. Teres Minor: Unremarkable. Biceps and [place]: Unremarkable. MUSCLES: Unremarkable. GLENOID LABRUM: Unremarkable on this noncontrast examination. SOFT TISSUES: Unremarkable. LIGAMENTS: Unremarkable. OTHER: Subacromial and subdeltoid bursae are unremarkable. IMPRESSION: 1. No evidence of a full-thickness rotator cuff tear. No evidence of a labral tear on this noncontra st examination. 2. Mild degenerative changes seen at the acromioclavicular joint. DATA REPOSITORY:
== END 2024-04-24 03:08 ==
LOC: DI 02:48
PROVIDERS: PCP Family Medicine; Visit Provider Student in an Organized Health Care Education/Training Program
DX: M19.012 Primary osteoarthritis, left shoulder
CPT/HCPCS: 73221

== ENCOUNTER 2024-07-10 02:58 | Outpatient (CLI) | payer BC, SELFPAY ==
[2024-07-10 09:16] LABS: HCT 38.8 % (36.0-46.0); HGB 12.9 g/dL (11.2-15.7); MCH 30.1 pg (27.0-33.0); MCHC 33.2 % (32.0-36.0); MCV 91 fL (80-95); MPV 8.9 fL (8.0-11.0); Platelet Count 276 10^3/uL (130-400); RBC 4.28 10^6/uL (3.93-5.22); RDW 12.5 % (11.7-14.6); RDW-SD 41.1 fL; WBC 4.68 10^3/uL (4.4-10.8)
[2024-07-10 09:59] LABS: Anion Gap 6.8 mmol/L (3-11); BUN 10 mg/dL (7-18); CO2 28.2 mmol/L (21.0-32.0); CREATININE 0.9 mg/dL (0.55-1.02); Calcium 8.9 mg/dL (8.5-10.1); Chloride 105 mmol/L (98-107); Estimated GFR 75.97 (mL/min/1.73m2); Glucose 85 mg/dL (74-106); Sodium 140 mmol/L (136-145)
== END 2024-07-10 02:59 | disposition home or self-care (01) ==
PROVIDERS: PCP Family Medicine; Visit Provider Student in an Organized Health Care Education/Training Program
DX: M17.0 Bilateral primary osteoarthritis of knee (principal); Z01.818 Encounter for other preprocedural examination
CPT/HCPCS: 36415; 80048; 85027

== ENCOUNTER 2024-07-10 09:15 | Outpatient (CLI) | payer BC, SELFPAY ==
--- NOTE | 2024-07-10 08:29 | DI.RAD_ITS ---
Exam(s) XR KNEE LT 1V XR KNEE RT 1V XR STANDING ALIGNMENT EXAM: XR STANDING ALIGNMENT and bilateral XR knee 1 V CLINICAL HISTORY: PRE OP BILAT TKA. TECHNIQUE: 2D digital imaging was performed. Six images were obtained. COMPARISON: CR XR KNEE RT 3V AP,LAT,CHUCK from 07/09/2021 CR XR KNEE LT 3V AP,LAT,CHUCK from 10/09/2021 FINDINGS: BONES: The hips are well maintained. In the right knee, try compartment degenerative changes are pre sent characterized by joint space narrowing and osteophytes. The findings are most marked in the med ial femoral tibial and patellofemoral joints. There is a small joint effusion. There are findings o f a prior ACL repair. In the left knee, there is mild joint space narrowing in the medial femoral ti bial joints and small osteophyte at the medial aspect of the proximal tibia. No joint effusion is se en. There are enthesophytes at the anterior patella. The ankles are well maintained.There is no sig nificant leg length discrepancy. SOFT TISSUE: Normal. IMPRESSION: 1. Marked degenerative changes in the right knee. 2. Mild degenerative changes in the left knee. DATA REPOSITORY: RADIATION DOSE DELIVERED:
== END 2024-07-10 09:16 | disposition home or self-care (01) ==
LOC: DIORS 09:16
PROVIDERS: PCP Family Medicine; Visit Provider Physician Assistant
DX: M17.0 Bilateral primary osteoarthritis of knee (principal)
CPT/HCPCS: 73560; 77073

== ENCOUNTER 2024-07-17 09:50 | Day surgery (SDC) | payer BC, SELFPAY ==
[2024-07-17] VITALS (31 sets, daily range): BP systolic 113–134; BP diastolic 62–76; PULSE 60–84; RESP 12–22; TEMP 36.2–36.8; O2SAT 96–100; BMI 28.9
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
[2024-07-17] MEDS: Gabapentin 300 MG CAP PO (10:31)
[2024-07-17] MEDS: Acetaminophen 500 MG TAB 1000 MG PO (10:31)
[2024-07-17] MEDS: Celecoxib 200 MG CAP 400 MG PO (10:31)
[2024-07-17] MEDS: Lactated Ringers 1,000 ML 80 ML IV (10:52)
--- NOTE | 2024-07-17 11:15 | W.ANESNERVE ---
Nerve Block Single Injection Procedure Date and Time Date Performed: 07/17/24 Procedure Start: 11:03 Location Where Procedure Performed Procedure Location: Day Surgery Unit Reason Performed: Postoperative Analgesia Requesting Provider: Anthony Duffy Timeout Performed Timeout Performed: Yes Monitoring Used ECG, Blood Pressure and SpO2 Sterility Sterility: Hand Hygiene, Surgical Cap, Surgical Mask, Sterile Gloves and Chlorhexidine Sedation Given During Procedure Sedation Given (Indicate Dose Given): Versed IV Dose:: 2 mg Patient Mental Status Patient Mental Status: Sedate with meaningful communication Nerve Block 1st Nerve Block: Laterality: Bilateral Block Type: Adductor Canal Ultrasound Image Saved?: Yes Needle / Catheter Used: 100mm SonoPlex II Local Anesthetic Bolus (Indicate Dose Given): Injected in 3-5ml increments after negative blood aspiration and Bupivacaine 0.25% Dose:: 14 mL Additives (Indicate Dose Given): Epinephrine to make 1:400,000 (2.5mcg/ml) Dose:: 25 mcg Ultrasound: Sterile probe cover and gel used Nerve Stimulator: Supplement to Ultrasound use and No twitch or parasthesia noted < 0.5 mA Paresthesia: None Procedure Tolerated: No Complications Procedure Outcome: Successful Performed By: Alejandro Perkins 2nd Nerve Block: Laterality: Bilateral Block Type: Other (anterior femoral cutaneous. ) Ultrasound Image Saved?: Yes Needle / Catheter Used: 100mm SonoPlex II Local Anesthetic Bolus (Indicate Dose Given): Injected in 3-5ml increments after negative blood aspiration and Bupivacaine 0.25% Dose:: 5 mL Additives (Indicate Dose Given): Epinephrine to make 1:400,000 (2.5mcg/ml) Dose:: 12.5 mcg Ultrasound: Sterile probe cover and gel used Nerve Stimulator: Supplement to Ultrasound use and No twitch or parasthesia noted < 0.5 mA Paresthesia: None Procedure Tolerated: No Complications Procedure Outcome: Successful Performed By: Alejandro Perkins
--- NOTE | 2024-07-17 11:19 | PDOC.DSDIS_ITS ---
Date of service: 07/17/24 Discharge Plan Disposition Patient Disposition: Home Condition: Good Discharge Details Reason For Visit: Bilateral knee DJD Attending Provider: Anthony Duffy Primary Care Provider: Raeann Edwards Home Meds and New Rx's Prescriptions: New acetaminophen 500 mg tablet 1,000 mg PO Q8H PRN Qty: 90 0RF Rx Instructions: Take two tablets up to every 8 hours as needed for pain aspirin 81 mg tablet,delayed release (DR/EC) 81 mg PO BID 30 Days Qty: 60 0RF celecoxib [Celebrex] 200 mg capsule 200 mg PO BID PRNQty: 60 0RF Rx Instructions: Take one tablet twice daily for pain and inflammation docusate sodium [Colace] 100 mg capsule 100 mg PO BID Qty: 30 0RF pantoprazole 40 mg tablet,delayed release (DR/EC) 40 mg PO DAILY Qty: 14 0RF dexamethasone 4 mg tablet 4 mg PO DAILY Qty: 2 0RF Rx Instructions: Take one tablet once daily for two days gabapentin 300 mg capsule 300 mg PO QHS Qty: 14 0RF Rx Instructions: Take one tablet at bedtime oxycodone 5 mg tablet 5 mg PO Q4H PRNQty: 18 0RF Rx Instructions: Take one tablet up to every 4 hours as needed for severe postoperative pain Continued triamcinolone acetonide 0.1 % cream 1 applic topical BID Qty: 80 0RF Rx Instructions: apply to foot nystatin 100,000 unit/gram powder 1 applic topical BID Qty: 60 4RF multivitamin [Daily Multi-Vitamin] Tablet 1 tab PO DAILY fluorouracil [Efudex] 5 % cream 1 applic topical BID Qty: 40 0RF Rx Instructions: use BID daily for 7 days every 3-4 weeks for 3 months tirzepatide 7.5 mg/0.5 mL pen injector 7.5 mg subcut QWEEK MDD 7.5 28 Days Qty: 2 12RF Rx Instructions: Inject 7.5 mg subcutaneously once weekly as directed. Discharge Instructions Additional Instructions: Total Knee Discharge Instructions Activity: The most important activity is to walk and to work on gentle motion (both flexion and extension). You should try to take short walks a few times a day. It is important that when resting you work on keeping the knee straight. Avoid putting a pillow behind the knee as this will encourage flexion. Work on range of motion exercises as provided by Physical Therapy. - Start outpatient physical therapy within 2 weeks. - You should wear the GEORGINA hose on both legs for 2 weeks. You may remove these at night. You may also use any compression sock in place of the GEORGINA hose. - Utilize [employer] to review exercises, see videos on exercises and obtain basic information pertaining to your surgery and your recovery. Dressing: Remove the Brad wrap by 2 days after your surgery and put on the GEORGINA stocking given to you from the hospital. Keep the surgical dressing (underneath the BRAD wrap) in place for at least one week. After the first week it may be removed and replaced with light gauze and tape or nothing. The wound and dressing may get wet after 3 days but avoid soaking the dressing or otherwise it will need to be changed. Many people prefer covering the dressing with cling wrap (saran wrap) to minimize it from getting soaked. If it gets wet, just pat dry. If it starts to peel off then it will need to be changed. Medications: - You should take Tylenol and anti-inflammatory Celebrex as your primary pain control medications. If the Celebrex is too expensive or not covered, please call the office for another alternative (Advil/Ibuprofen or Naproxen/Aleve) - You have been prescribed a stronger pain medication Oxycodone for breakthrough pain, take as needed as prescribed. - You have also been prescribed a stomach acid reduction agent Pantoprozole to help reduce stomach acid and reflux. - You have been prescribed Gabapentin to take at night for restlessness and nerve pain. - You will be taking Aspirin 81mg twice a day for DVT prevention unless instructed otherwise. - You have also been prescribed Decadron to take to control post-operative nausea and pain. You will start this tomorrow. - If you have constipation you should take Colace (which has been prescribed) or Miralax (which is available [id number]). It takes most people 3-4 days to have a bowel movement. Follow-up: 2 weeks If you have any acute concerns or questions, please do not hesitate to contact the office at [phone]. You may contact Dr. Duffy with any questions after hours through the hospital at [phone] or on his cell phone at [phone]. Referrals: Anthony Duffy MD [ [facility] STAFF PHYSICIAN] - Equipment/Supplies: Walker Activity:: Elevate Remove Dressings/Wound Care:: Do Not Remove Shower/Bathe:: Cover Diet:: As Tolerated Discharge Orders Discharge Orders: Discharge Order (Routine); Ordered 07/17/24 Ordered By: Shireen Mccarty
[2024-07-17] MEDS: ceFAZolin 2 GM/50 ML BAG IVPB (12:22)
[2024-07-17] MEDS: TRANEXAMIC ACID/SOD. CHL. 1,000 MG/100 ML BAG 600 MG IVPB (12:26)
--- NOTE | 2024-07-17 12:28 | ROE_ITS ---
Operative Note Operative Note PRE-OP DIAGNOSIS: Bilateral Knee Osteoarthritis POST-OP DIAGNOSIS: same PROCEDURE: Bilateral Total Knee Replacement with Intraoperative Navigation SURGEON: Anthony Duffy MAILROOM COURIER: Shireen Mccarty ANESTHESIA TYPE: Spinal Refer to Anesthesia Record ESTIMATED BLOOD LOSS: 200 PATHOLOGY: none sent TOURNIQUET TIME: 0 COMPLICATIONS: None Patient was transported to: PACU Patient's condition: stable Implants: RIGHT: 1. Depuy Attune Cementless Cruciate Retaining Femoral Component, Size 5 2. Depuy Attune Cementless Fixed Bearing Tibial Component, Size 4 3. Depuy Attune 5x6mm CR/FB Poly LEFT: 1. Depuy Attune Cementless Cruciate Retaining Femoral Component, Size 5 2. Depuy Attune Cementless Fixed Bearing Tibial Component, Size 4 3. Depuy Attune 5x6mm CR/FB Poly Indications: I have seen Shirlene in clinic for symptoms of bilateral knee arthritis, confirmed with radiographic findings. [NAME] has exhausted nonoperative methods and was having significant limitations in daily function and desired better function and less pain. I discussed the technical details of a knee replacement. I explained the risks of the procedure to include, but not limited to, bleeding, infection, pain, stiffness, fracture, damage to nerves and vessels, damage to muscles and tendons, loosening, need for repeat procedure, blood clot and cardiopulmonary demise. Despite these risks, [NAME] elected to proceed. Findings: There was significant signs of arthritis throughout both knees, worse medially and worse on the right. Procedure Description: Shirlene was greeted in the preoperative holding area where the correct side was identified and marked. The consent was reviewed with the patient and signed. The history and physical was updated. All questions were answered. Preoperative mediacations were administered: Acetaminophen 1000mg, Celebrex 400mg, and Gabapentin 300mg. An adductor canal block was then administered by the anesthesia team in the DSU. Shirlene was taken back to the operating room. A spinal anesthestic was then administered. The patient was placed into the supine position on the operating room table. Posts were placed for positioning during the procedure. All bony prominences were well padded. Prophylactic antibiotics in the form of Cefazolin were administered. 1g of Tranxemic Acid was given intravenously within 30 minutes of incision. Both legs were then prepped with Chloraprep and draped in a standard fashion with impervious stockinette. RIGHT KNEE: A second prep with Chloraprep was performed prior to application of Iodine impregnated skin protection on the right knee. A timeout to confirm correct identity, side and site, procedure, allergies, anesthesia, and medical concerns was performed. With the knee in some flexion, a midline incision was made overlying the knee. Full thickness skin flaps were raised once the extensor mechanism was encountered. These were raised medially and laterally. Any bleeding was controlled with electrocautery. Once the extensor mechanism was fully exposed, a medial parapatellar arthrotomy was performed in a flexed position. All bleeding from the arthrotomy and the geniculate arteries was coagulated. A medial subperiosteal peel was performed with electrocautery to the midcoronal plane. The fat pad was removed while keeping the patellar tendon protected. The anterior distal femur synovium was removed for later visualization. The ACL and PCL were resected and the anterior horn of the lateral meniscus was transected. The knee was then flexed with the patella everted. Large osteophytes from the tibia were removed. Large osteophytes from the femur were removed. A single starting pin was then placed 1cm anterior to the PCL insertion and the notch in the direction of the femoral head. The OrthoAlign device was applied over the pin. It was oriented to be in line with the epicondylar axis and the trochlear groove. It was then pinned into place. The navigation computer was then turned on and calibrated. The distal femur cut was set at 0.5 degrees varus and 3.5 degrees flexion. The distal femur cutting guide then was positioned for a 9mm cut. The distal femur was cut with an oscillating saw while protecting the soft tissues. The tibia was then addressed. The OrthoAlign device was placed over the tibial tubercle and medial tibia and secured into position. Once again, OrthoAlign was calibrated and then set for a 1.5 degree varus cut and 5.5 degrees of posterior slope. With this locked into position, the cut thickness stylus was used to assess cut thickness. The medial side, most involved side, was set for a 4mm cut. This was then held in position and pinned into place with 2 additional pins and a cross pin for stability. The medial and lateral collateral ligaments were protected and the cut was performed. With this completed, it was assessed and noted to be of appropriate dimensions. The guide and OrthoAlign was removed. A spacer block was inserted and the knee was brought into extension to ensure enough space was present. . The Orthoalign gap balancing device was then placed in extension. This was used to ensure that the ligaments were properly balanced with up to 2 to 3 mm laxity laterally compared medially. The extension gap was measured as 18mm. The knee was then brought into 90 degrees of flexion and the ligament vehicle and equipment cleaner was once again placed. Under the same amount of force the flexion gap was measured. The Attune specific jig was placed and the flexion gap was made to match the extension gap. The femur was then sized as a size 5. The 4-in-1 cutting guide was the placed. An juan wing was used to confirm appropriate position of the anterior cut to avoid notching. This cutting guide was ensured to be flush on the cut surface and then pinned into place with headed pins. While protecting the soft tissues, quad tendon, and collateral ligaments, the anterior and posterior cuts were performed with a saw. The central two pins were removed and the posterior and anterior chamfers were cut next. The notch-cutting guide was placed. This was pinned to lateralize the femoral component as much as possible while keeping it flush on the cut surface. This was then pinned into position. A saw was used to make the notch cut. A rasp smoothed the cut surfaces. The medial and lateral menisci were removed. A trial femoral component was then inserted, impacted down to the cut surfaces, and the lug holes were drilled. A provisional trial tibial component was placed and the knee was brought through range of motion. There was noted to be excellent extension and flexion. There was no significant instability. The patella was tracking without thumbs. A size 6mm polyethylene component provided the best range of motion and stability with less than 2mm gapping with medial and lateral stress and full extension without significant hyperextension. The femoral lug holes were drilled. The tibial cut surface was fully exposed. The tibia was then sized as a 4. The tibia had been previously marked during trialing to correspond to the center of the tibial component to help with rotation. The trial was aligned to this halina, approximately rotated to the medial 1/3rd of the tibial tubercle. The trial was pinned into place. The tibia was prepared with a reamer and a keel punch and lug holes. The final components were opened on the back table. The periosteal and capsular tissues, especially posteriorly, around the knee were then systematically injected with a periarticular cocktail consisting of 246mg of Ropivacaine, 0.5mg of Epinephrine, 0.08mg of Clonidine, and 30mg of Ketorolac, diluted to 50cc. The cementless knee components were then placed. Starting with the tibial component, the tibia was subluxed anteriorly and the lug holes of the component were lined up. The tibia was then impacted with an impactor and mallet until the tibial component was in contact with the tibia. Then, the femoral component was inserted. The lug holes were aligned and the component was impacted into position. The final polyethylene component was inserted. The knee was irrigated with Surgiphor Betadine solution. This was allowed to sit in the knee for 3 minutes and then it was thoroughly irrigated out with saline. The capsule was then reapproximated with a No. 1 Vicryl at multiple locations. The capsule was finally closed with a No. 2 Stratafix, barbed suture. The second dosing of 1g TXA was started. Deep tissues were then reapproximated with 0 Vicryl and 2-0 Vicryl. The skin was closed with a running 3-0 Monocryl in a subcuticular fashion. LEFT KNEE: Attention was then turned to the left knee. A towel was placed over the right knee incision until the completion of the left side. Starting with the knee in some flexion, a midline incision was made overlying the knee. Full thickness skin flaps were raised once the extensor mechanism was encountered. These were raised medially and laterally. Any bleeding was controlled with electrocautery. Once the extensor mechanism was fully exposed, a medial parapatellar arthrotomy was performed in a flexed position. All bleeding from the arthrotomy and the geniculate arteries was coagulated. A medial subperiosteal peel was performed with electrocautery to the midcoronal plane. The fat pad was removed while keeping the patellar tendon protected. The anterior distal femur synovium was removed for later visualization. The ACL and PCL were resected and the anterior horn of the lateral meniscus was transected. The knee was then flexed with the patella everted. A single starting pin was then placed 1cm anterior to the PCL insertion and the notch in the direction of the femoral head. The OrthoAlign device was applied over the pin. It was oriented to be in line with the epicondylar axis and the trochlear groove. It was then pinned into place. The navigation computer was then turned on and calibrated. The distal femur cut was set at 0 degrees varus and 3.5 degrees flexion. The distal femur cutting guide then was positioned for a 9mm cut. The distal femur was cut with an oscillating saw while protecting the soft tissues. The tibia was then addressed. The OrthoAlign device was placed over the tibial tubercle and medial tibia and secured into position. Once again, OrthoAlign was calibrated and then set for a 1.5 degree varus cut and 5.5 degrees of posterior slope. With this locked into position, the cut thickness stylus was used to assess cut thickness. The medial side, most involved side, was set for a 6mm cut. This was then held in position and pinned into place with 2 additional pins and a cross pin for stability. The medial and lateral collateral ligaments were protected and the cut was performed. With this completed, it was assessed and noted to be of appropriate dimensions. The guide and OrthoAlign was r emoved. A spacer block was inserted and the knee was brought into extension to ensure enough space was present. . The Orthoalign gap balancing device was then placed in extension. This was used to ensure that the ligaments were properly balanced with up to 2 to 3 mm laxity laterally compared medially. The extension gap was measured as 19mm. The knee was then brought into 90 degrees of flexion and the ligament vehicle and equipment cleaner was once again placed. Under the same amount of force the flexion gap was measured. The Attune specific jig was placed and the flexion gap was made to match the extension gap. The femur was then sized as a size 5. The 4-in-1 cutting guide was the placed. An juan wing was used to confirm appropriate position of the anterior cut to avoid notching. This cutting guide was ensured to be flush on the cut surface and then pinned into place with headed pins. While protecting the soft tissues, quad tendon, and collateral ligaments, the anterior and posterior cuts were performed with a saw. The central two pins were removed and the posterior and anterior chamfers were cut next. The notch-cutting guide was placed. This was pinned to lateralize the femoral component as much as possible while keeping it flush on the cut surface. This was then pinned into position. A saw was used to make the notch cut. A rasp smoothed the cut surfaces. The medial and lateral menisci were removed. A trial femoral component was then inserted, impacted down to the cut surfaces, and the lug holes were drilled. A provisional trial tibial component was placed and the knee was brought through range of motion. There was noted to be excellent extension and flexion. There was no significant instability. The patella was tracking without thumbs. A size 6mm polyethylene component provided the best range of motion and stability with less than 2mm gapping with medial and lateral stress and full extension without significant hyperextension. The tibial cut surface was fully exposed. The tibia was then sized as a 4. The tibia had been previously marked during trialing to correspond to the center of the tibial component to help with rotation. The trial was aligned to this halina, approximately rotated to the medial 1/3rd of the tibial tubercle. The trial was pinned into place. The tibia was prepared with a reamer and a keel punch and lug holes. The femoral lug holes were drilled. The periosteal and capsular tissues, especially posteriorly, around the knee were then systematically injected with a periarticular cocktail consisting of 246mg of Ropivacaine, 0.5mg of Epinephrine, 0.08mg of Clonidine, and 30mg of Ketorolac, diluted to 50cc. The cementless knee components were placed. Starting with the tibial component, the tibia was subluxed anteriorly and the lug holes of the component were lined up. The tibia was then impacted with an impactor and mallet until the tibial component was in contact with the tibia. Then, the femoral component was ins erted. The lug holes were aligned and the component was impacted into position. The final polyethylene component was inserted. The knee was irrigated with Surgiphor Betadine solution. This was allowed to sit in the knee for 3 minutes and then it was thoroughly irrigated out with saline. The capsule was then reapproximated with a No. 1 Vicryl at multiple locations. The capsule was finally closed with a No. 2 Stratafix, barbed suture. Deep tissues were then reapproximated with 0 Vicryl and 2-0 Vicryl. The skin was closed with a running 3-0 Monocryl in a subcuticular fashion. This was r einforced with skin glue. The right knee wound was also reinforced with skin glue. A Mepilex silver dressing was applied to both knees along with a [id number] NISSA wrap. CryoCuff was applied. Shirlene was transferred to the hospital bed without difficulty an suffering no apparent complication. Shirlene has a good prognosis. Physical therapy will start today and without restrictions, weight-bearing as tolerated. Aspirin 81mg BID will be used for DVT prophylaxis. Date of Procedure: 07/17/24
--- NOTE | 2024-07-17 15:22 | W.ANESPOSTOP ---
Postoperative Evaluation Date, Time and Location Date Performed: 07/17/24 Time Performed: 15:22 Patient Location: PACU Vital Signs Most Recent Imported Vital Signs: Most Recent Vital Signs Temp Pulse Resp BP Pulse Ox 36.8 C 74 15 115/70 97 07/17/24 11:07 07/17/24 15:21 07/17/24 15:21 07/17/24 15:21 07/17/24 15:21 Pain Score Most Recent Pain Score: Most Recent Pain Score Pain Level 0 07/17/24 11:07 Assessment Mental Status: Awake (Alert & Oriented to Patient Baseline) Airway and Respiratory Function: Patent airway with normal (patient baseline) respiratory exam Cardiovascular Function: Hemodynamically Stable Hydration Status: Adequately Hydrated Nausea & Vomiting: No Nausea or Vomiting Pain: Pain is tolerable per patient (Spinal still waning. Left shoulder is uncomfortable. ) Peripheral Nerve Block: Regional nerve block not resolved at time of post operative discharge
--- NOTE | 2024-07-17 17:35 | IN_ITS ---
PT Notes Visit Reasons: Bilateral knee DJD Physical Therapy Day Surgery Initial Evaluation Date: 07/18/2024 Referring Doctor: Dr Duffy PT Orders: PT CONSULT: s/p Ortho surgery Precautions: WBAT BLE, Patient Profile/Admitting Diagnosis: Pt is a 54yo female presenting s/p elective B TKA d/t OA under spinal anesthesia. Post op uncomplicated PMHX: Anemia (10/06/11) History of seizure (08/14/15) 10 years oldLateral epicondylitis of left elbow (08/14/15) Sebaceous cyst (02/10/15) Vertigo (08/14/15) Anemia 10/06/11 Sebaceous cyst 02/10/15 History of seizure 08/14/15 Left tennis elbow 08/14/15 Vertigo 08/04/15Right rotator cuff tendonitis Right shoulder pain Vitamin D deficiency (10/06/11) Sleep apnea (10/17/14) [facility];SLEEP FRAGMENTATION Migraine without aura and without status migrainosus, not intractable (10/23/15) Insomnia disorder, with other sleep disorder, recurrent (08/16/16) Common bile duct stone (10/12/17) Chronic pain of left knee (08/14/15) 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) [facility] [place] Cervical pain (neck) (08/14/15) Calculus of gallbladder and bile duct w/cholecystitis w/o obstruction (10/12/17) Anxiety (06/17/16) Surgical History (Updated 07/10/24 @ 08:26 by Shireen Mccarty) Hx of cholecystectomy History of arthroscopy of kneeLeft H/O arthroscopy of knee right x 2 ---1994; 2005 Repair, ACL (~2005) Right Social History/Home Situation: Pt resides in single family home with her . She has 2 steps to enter without railing. She is independent ADL, am bulation, meal prep,shopping, driving. 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 Equipment Owned/DME: [employer] Subjective: Pt reports her feet feel like she is walking on a cloud initially u ana standing. She noted it was resolving as she walker more. She stated she was incontinent when she stood with nursing to get over to the chair. She noted she had no control. Objective: [] General Observation: Alert cooperative pleasant female seated in chair having B [place] wraps reapplied d/t incontinence. Pt agreeable to participate in assessment after ac wraps re applied. Mental Status: A+ Ox 4 able to follow all instructions Pain: 2/10 ROM: [] Right Upper Extremity: WNL Left Upper Extremity: GHJ limited flexion/elevation, Abduction to 90 degrees, elbow wrist hand WNL Right Lower Extremity: Hip and ankle WNL; knee 5-100 Left Lower Extremity: hip and ankle WNL; knee 0-105 Strength: [] Right Upper Extremity: 5/5 Left Upper Extremity: shoulder 2+/5, elbow 4/5, police artist good Right Lower Extremity: hip 3-/5, quad3-/5 hamstring 3-/5, ankle >3/5 (+) quad lag with shortened range SLR. Pt requires cues tactile and verbal for quad VMO activation Left Lower Extremity: hip 3-/5 quad 3-/5 hamstring 3-/5 (+) lag with shortened range SLR however able to sustain with quad set prior to SLR Sensation: diminished proprioception B ankle which resolved Bed Mobility/Transfers: [] Supine to sit CGA sit to supine min A for BLE Sit to stand initially min A with cues to activate quads/ straighten knees then progressed to CGA Stand to sit CGA cues for reaching back Bed to chair CGA with FWW Gait:150 feet CGA with FWW cues for FWW management (positioning of FWW and body orientation) and heel strike BLE as well as tighten thighs during WB. Balance: [] Static Sitting: normal Dynamic Sitting: good Static Standing: Fair+ Dynamic Standing: Fair Special Tests: [] Mobility Limitations Standardized Measure [] [facility] AM-PAC 6 clicks Basic Mobility Inpatient Short Form: [] Raw Score:19 CMS Score: 41.77% Informed Consent/Education: Patient instructed in purpose of PT consult. Packet containing TKA exercise protocol has been given to patient. Education and training on initial set of exercises that can be done at home have been completed with patient. Treatment: bed mobility with able to assist LEs into bed as needed instructed in providing tactile cue to quad during stair ascending and descending to ensure activation and reduce risk for buckling. gait training with FWW cues for holding knee extension through mid stance . standing with 1 UE support with cues for quad activation Assessment: Pt presents with some residual effects of spinal anesthesia including impaired sensation, impaired motor control B quads and bladder incontinence. Patient presents with clinical signs and symptoms consistent with current/admitting diagnoses that have resulted to mobility limitations, gait instability, generalized weakness, and impairment of motor control as demonstrated by the following impairment level findings: 1. Decreased strength/ motor control to Bilateral knee major muscle groups 2. Impaired standing balance 3. Limitation of joint range of motion in Bilateral knee right >left 4. Impaired functional activity tolerance Impairments are contributing to the following functional limitations: 1. Inability to safely ambulate without assistive device 2. Increase completion time for mobility ADL performance 3. Increased fall risk 4. Impaired bed mobility 5. difficulty performing stairs without assistance Patient is assessed as a moderate complexity based on the following: History: 54-year-old female with impairment level findings, functional limitations, and past medical history as indicated above Examination: Demonstrable impairment in strength, balance, and mobility level with underlying impairments and functional limitations as documented above Presentation: evolving Decision Making: moderate Goals: N/A. Plan of Care/Treatment Plan: N/A. DISCHARGE RECOMMENDATIONS: Home with HEP and Outpatient PT as scheduled for 07/31/2024 TREATMENT CODE/TIME: 22617, [id number]/ [id number] Thank you for the opportunity to participate in the care of this patient. Dionne Smallwood, PT [facility]
== END 2024-07-17 19:10 | disposition home or self-care (01) ==
PROVIDERS: PCP Family Medicine; Visit Provider Student in an Organized Health Care Education/Training Program
PROC: 0SRC0JZ Replacement of Right Knee Joint with Synthetic Substitute, Open Approach (ICD-10-PCS; CPT 27447; principal; 2024-07-17 13:00)
DX: M17.0 Bilateral primary osteoarthritis of knee (principal); G89.18 Other acute postprocedural pain; M25.561 Pain in right knee; M25.562 Pain in left knee; R73.01 Impaired fasting glucose
CPT/HCPCS: 27447; 20985; 64447; 64450; 81025; 97110; 97116; 97162; 97530; C1776; J0171; J0665; J0690; J1100; J2003; J2250; J2405; J2704; J3010

== ENCOUNTER 2024-07-30 12:21 | Outpatient (CLI) | payer BC, SELFPAY ==
--- NOTE | 2024-07-30 09:30 | DI.RAD_ITS ---
Exam(s) XR KNEE LT 1V XR STANDING ALIGNMENT XR KNEE RT 1V EXAM: XR STANDING ALIGNMENT and bilateral XR knee 1 V CLINICAL HISTORY: 1st post op S/P BILAT TKAs. TECHNIQUE: 2D digital imaging was performed. Six images were obtained. COMPARISON: CR XR STANDING ALIGNMENT from 07/10/2024 CR XR KNEE RT 1V from 07/10/2024 CR XR KNEE LT 1V from 07/10/2024 FINDINGS: BONES: The hips are well maintained. Since the prior examination the patient has undergone bilateral total knee arthroplasty. There is no evidence of hardware failure. There are findings of a prior r ight ACL repair. The ankles are well maintained.There is no significant leg length discrepancy. SOFT TISSUE: Normal. IMPRESSION: Status post bilateral total knee arthroplasties. DATA REPOSITORY: RADIATION DOSE DELIVERED:
== END 2024-07-30 12:22 | disposition home or self-care (01) ==
LOC: DIORS 12:21
PROVIDERS: PCP Family Medicine; Visit Provider Student in an Organized Health Care Education/Training Program
DX: Z96.653 Presence of artificial knee joint, bilateral (principal); Z47.1 Aftercare following joint replacement surgery
CPT/HCPCS: 73560; 77073

== ENCOUNTER 2024-09-04 13:03 | Outpatient (REF) | payer BC, SELFPAY ==
--- NOTE | 2024-09-04 08:30 | PAPFT_PTH ---
PATIENT: Shirlene Gregorio LOC: [facility] U#:[id number] AGE/SX: 54/F ROOM: RE09/04/[address]: Raeann Edwards MD, DC : 1970 BED: DIS: 09/04/2024 SPEC #: [id number] RECD: 09/04/24 13:19 STATUS: LIANNE RECassy #: [id number] SHASHA: 09/04/24 08:[address]: Raeann Edwards DEPT: [facility] Cytology RECD BY: Najma Finley Tissues: 1 - CX/ENDOCX FOR PAP SMEARS Procedures: PAP THIN PREP/UVM Screening HPV DNA PROBE Comments: [id number] (HPV 16 & 18/45)
== END 2024-09-04 13:04 | disposition home or self-care (01) ==
LOC: LBN 13:03
PROVIDERS: PCP Family Medicine; Visit Provider Family Medicine
DX: Z12.4 Encounter for screening for malignant neoplasm of cervix (principal)
CPT/HCPCS: 88142; 87624

== ENCOUNTER 2024-09-06 00:44 | Outpatient (CLI) | payer BC, SELFPAY ==
--- NOTE | 2024-09-06 08:30 | DI.MAMMO_ITS ---
Exam(s) MAMMO SCREENING EXAM: MAMMO SCREENING CLINICAL HISTORY: screening,Z12.39. TECHNIQUE: Bilateral full field digital CC and MLO mammographic images were obtained with 3D tomosyn thesis and utilizing computer aided detection (CAD). COMPARISON: Prior mammograms were reviewed. PRIOR ULTRASOUND OF 08/29/2023 WAS ALSO REVIEWED FINDINGS: In the left breast the previously described small anteriorly located nodule shown to be a cyst on ult rasound examination is unchanged. There are no new left breast findings. In the right breast there is a retroareolar region well-defined noncalcified nodule best seen on the MLO view which measures 7 x 5 mm. There are no malignant-appearing microcalcification groups in this region or elsewhere in either [address]. There is no significant architectural distortion nor skin thickening-retraction. IMPRESSION: 1. Retroareolar region right breast nodule measuring 7 x 5 mm. Spot compression view and ultrasound recommended. 2. Stable appearance of small benign-appearing left breast nodule which was shown to be a microcyst o n ultrasound examination of 08/29/2023. BI-RADS Category 0 - Incomplete: Need additional imaging evaluation Breast Density - Category B - There are scattered areas of fibroglandular density. Breast density Category C or D implies that the patient has dense breast tissue. Dense breast tissue can make it harder to find cancer on a mammogram. Dense breast tissue is also associated with an incr eased risk of breast cancer. This information about the result of the mammogram report was provided to the patient to raise their awareness. Use this report when you speak with the patient about their risks for breast cancer, which includes their family history. At that time, you may recommend additional screening tests (Ultrasoun d or MRI) as these tests may add significant information. A negative radiographic report should not delay biopsy if a dominant or clinically suspicious mass is present. Up to ten percent of cancers are not identified on mammography. A negative report may reinforce clinical impression. Adenosis and dense breasts may obscure an underlying neoplasm. False positive reports average 6 to 10%. Patient will receive a letter notifying them of these results.
== END 2024-09-06 01:04 ==
LOC: DI 00:45
PROVIDERS: PCP Family Medicine; Visit Provider Family Medicine
DX: Z12.31 Encounter for screening mammogram for malignant neoplasm of breast (principal); R92.323 Mammographic fibroglandular density, bilateral breasts
CPT/HCPCS: 77063; 77067

== ENCOUNTER 2024-09-11 01:25 | Outpatient (CLI) | payer BC, SELFPAY ==
--- NOTE | 2024-09-11 | DI.US_ITS ---
Exam(s) MG MAMMO SCREEN CALL BACK UNI US BREAST RT LIMITED EXAM: MG MAMMO SCREEN CALL BACK UNI and U/S breast RT limited CLINICAL HISTORY: Retroareolar region well-defined noncalcified 7 x 5 mm nodule, Rt breast. TECHNIQUE: Craniocaudal and mediolateral oblique Full Field Digital Mammography views of the right b reast with Computer Aided Diagnosis followed by Tomosynthesis and right breast ultrasound. COMPARISON: Comparison is made with prior examinations. FINDINGS: Mammography/Tomosynthesis: Masses/Architectural Distortion: The area of concern is less prominent on the current examination. T here are ovoid densities in the retroareolar region likely reflecting ducts. No areas of architectur al distortion are seen. Microcalcifictions: No suspicious pleomorphic-type are seen. Skin Thickening/Nipple Retraction: None. Limited right breast US: Echotexture: Normal appearance of the glandular tissue. Shadowing: No suspicious foci. Cyst: None. Solid lesions: None seen. Ductal dilation: There are ducts seen in the retroareolar region of the right breast including a mild ly prominent duct at the 9 o'clock position likely accounting for the mammographic finding. IMPRESSION: 1. No evidence of malignancy is noted. 2. Unless there is more urgent need, follow-up screening mammography is recommended, as per [place] [employer] guidelines. 3. The findings were discussed with the patient on the date of the examination. BI-RADS Category 1 - Negative Breast Density - Category B - There are scattered areas of fibroglandular density. Breast density Category C or D implies that the patient has dense breast tissue. Dense breast tissue can make it harder to find cancer on a mammogram. Dense breast tissue is also associated with an incr eased risk of breast cancer. This information about the result of the mammogram report was provided to the patient to raise their awareness. Use this report when you speak with the patient about their risks for breast cancer, which includes their family history. At that time, you may recommend additional screening tests (Ultrasoun d or MRI) as these tests may add significant information. A negative radiographic report should not delay biopsy if a dominant or clinically suspicious mass is present. Up to ten percent of cancers are not identified on mammography. A negative report may reinforce clinical impression. Adenosis and dense breasts may obscure an underlying neoplasm. False positive reports average 6 to 10%. Patient will receive a letter notifying them of these results.
== END 2024-09-11 01:45 ==
LOC: DI 01:25
PROVIDERS: PCP Family Medicine; Visit Provider Family Medicine
DX: Z12.31 Encounter for screening mammogram for malignant neoplasm of breast (principal); R92.323 Mammographic fibroglandular density, bilateral breasts
CPT/HCPCS: 76642; 77063; 77067

== ENCOUNTER 2024-09-12 12:46 | Day surgery (SDC) | payer BC, SELFPAY ==
[2024-09-12] VITALS (18 sets, daily range): BP systolic 113–131; BP diastolic 58–89; PULSE 63–87; RESP 9–21; TEMP 36.5–36.8; O2SAT 97–100; BMI 29.4
--- NOTE | 2024-09-12 13:12 | W.PREOPHP ---
Assessment and Plan Assessment and plan (1) Arthrofibrosis of total knee arthroplasty: Status: Acute Assessment and plan: Shirlene is about 2 months status post bilateral knee replacements with arthrofibrosis of the right knee. She has been diligently attempting improvement of this range of motion with physical therapy continues to be limited. Therefore, recommend we proceed with manipulation under anesthesia. I discussed the tentacle details of the case. I discussed the risk to include continued stiffness, fracture, bleeding of the joint, pain. Despite these risk, she elects to proceed. History of Present Illness History of Present Illness Chief Complaint: Right knee postoperative arthrofibrosis Narrative: Shirlene is a 54-year-old female who is about 8 weeks status post bilateral knee replacements. Overall she is doing well. However, she has trouble with range of motion on the right knee. She has not made much progress over the past few weeks and continues to maximally get to about 85 to 90 degrees. At this point, the manipulation was recommended. She denies any other new issues. No new trauma. No sick contacts. No chest pain or shortness of breath. Review of Systems All systems reviewed & are unremarkable except as noted in HPI and below PFSH All Active Problems Arthrofibrosis of total knee arthroplasty (Acute) History of bilateral knee arthroplasty (Acute 07/17/24) Bursitis of left shoulder (Acute) Tendinitis of left rotator cuff (Acute) Insomnia (Acute) Left rotator cuff tear (Acute) Skin lesions, generalized (Acute) Impaired fasting glucose (Acute) Obesity (Chronic) Dizziness (Acute) Encounter for annual physical exam (Acute) Dysphagia (Acute) Obesity (BMI 30-39.9) (Acute) BMI 37.0-37.9, adult (Acute) Left knee DJD (Chronic) Depo-Medrol injection: 10/09/2021; 02/27/24 Kristal albicans infection (Acute) Osteoarthritis of right knee (Chronic) Depo-Medrol injection: 02/27/24; 10/09/2021; 07/10/2019 Hyperplastic colon polyp (Acute) Herpes zoster (Acute) Vertigo (Acute) Fatigue (Acute 07/11/17) Medical History Encounter for screening colonoscopy Annual physical exam Anemia (10/06/11) History of seizure (08/14/15) 10 years old Lateral epicondylitis of left elbow (08/14/15) Sebaceous cyst (02/10/15) Vertigo (08/14/15) Anemia 10/06/11 Sebaceous cyst 02/10/15 History of seizure 08/14/15 Left tennis elbow 08/14/15 Vertigo 08/04/15 Right rotator cuff tendonitis Right shoulder pain Vitamin D deficiency (10/06/11) Sleep apnea (10/17/14) [facility];SLEEP FRAGMENTATION Migraine without aura and without status migrainosus, not intractable (10/23/15) Insomnia disorder, with other sleep disorder, recurrent (08/16/16) Common bile duct stone (10/12/17) Chronic pain of left knee (08/14/15) 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 Father , age 78 Heart disease Myocardial infarction Neoplasm BLADDER Sister Depression Diabetes Brother No problems noted. Maternal Grandfather No problems noted. Paternal Grandfather Heart disease Maternal Grandmother Diabetes Paternal Grandmother Heart disease Social History Smoking/Tobacco Use Status: Never Second Hand Exposure: Yes (as a child) Smoking risk assessment performed?: Yes Alcohol Intake: current Alcohol Intake frequency: a few times a week Alcohol type: beer, wine and hard liquor Drug use: Never Substance use type: does not use Details: alcohol: t-1, 1 oz vodka Adopted: No Household members: significant other, children and other Details: [employer] Housing: house Number of Children: 2 number of grandchildren: 1 Communication Needs: None Education Level: college Do you need help understanding health information?: Rarely current occupation: [employer] Pets and animals: Yes Pets and animals: dog(s) and farm animals Sexually active: Yes Do you think of yourself as: straight/heterosexual Current gender identity: female What is your relationship status?: living with partner How often do you talk on the phone with friends or family?: twice per week How often do you get together with friends or relatives?: twice per week Panel score (0-1 are the most socially isolated patients): 2 What type of physical activity do you participate in: other Details: XIP strength training Duration: 60-90 minutes/day Frequency: 3-4 times per week Cari/Episcopalian: No preference Seatbelt use: always Drive intox or ride w/intox 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 Working smoke detector in home: Yes Carbon monox detector in home: Yes Firearms in home: Yes Firearms unloaded and locked: Yes Do you feel safe at home: Yes Do you feel safe in your relationship?: Yes Meds Allergies and Home Medications Allergies Allergy/AdvReac Type Severity Reaction Status Date / Time No Known Allergies Allergy Verified 09/12/24 13:12 Home Medications ?Medication ?Instructions ?Recorded ?Confirmed ?Type multivitamin (Daily Multi-Vitamin 1 tab PO DAILY 04/20/21 09/12/24 History tablet) nystatin 100,000 unit/gram topical 1 applic topical BID #60 grams 08/31/21 09/12/24 Rx powder triamcinolone acetonide 0.1 % 1 applic topical BID #80 grams 08/31/21 09/12/24 Rx topical cream fluorouracil 5 % topical cream 1 applic topical BID #40 grams 09/20/23 09/12/24 Rx (Efudex) tirzepatide 7.5 mg/0.5 mL 7.5 mg (0.5 mL) subcut QWEEK 28 01/10/24 09/11/24 Rx subcutaneous pen injector days #2 mL acetaminophen 500 mg tablet 1,000 mg (2 x 500 mg) PO Q8H PRN 07/17/24 09/12/24 Rx pain #90 tabs celecoxib 200 mg capsule (Celebrex) 200 mg PO BID PRN pain #60 caps 04/15/25 05/14/25 Rx gabapentin 300 mg capsule 300 mg PO QHS #30 caps 09/03/24 09/12/24 Rx methocarbamol 750 mg tablet mg 09/12/24 History Exam Const General: cooperative, healthy appearing, comfortable and no acute distress Resp Effort & Inspection: normal respiratory effort Auscultation: clear to auscultation bilaterally Cardio Rate: regular rate Rhythm: regular rhythm
[2024-09-12] MEDS: Acetaminophen 500 MG TAB 1000 MG PO (13:29)
[2024-09-12] MEDS: Celecoxib 200 MG CAP 400 MG PO (13:29)
[2024-09-12] MEDS: Lactated Ringers 1,000 ML 80 ML IV (13:40)
--- NOTE | 2024-09-12 13:45 | W.ANESPRE ---
General Info Date of Service Date Performed: 09/12/24 Height: 5 ft 8 in Weight: 87.8 kg Body Mass Index (BMI): 29.4 Surgical Procedure: Operation Date: 09/12/24 15:55 Proposed Procedure Side Surgeon p Knee Manipulation of Knee Right Anthony Duffy MD Actual Procedure Side Surgeon p Knee Manipulation of Knee Right Anthony Duffy MD Meds Allergies and Home Medications Allergies Allergy/AdvReac Type Severity Reaction Status Date / Time No Known Allergies Allergy Verified 09/12/24 13:12 Home Medication ?Medication ?Instructions ?Recorded multivitamin (Daily Multi-Vitamin 1 tab PO DAILY 04/20/21 tablet) nystatin 100,000 unit/gram topical 1 applic topical BID #60 grams 08/31/21 powder triamcinolone acetonide 0.1 % 1 applic topical BID #80 grams 08/31/21 topical cream fluorouracil 5 % topical cream 1 applic topical BID #40 grams 09/20/23 (Efudex) tirzepatide 7.5 mg/0.5 mL 7.5 mg (0.5 mL) subcut QWEEK 28 01/10/24 subcutaneous pen injector days #2 mL acetaminophen 500 mg tablet 1,000 mg (2 x 500 mg) PO Q8H PRN 07/17/24 pain #90 tabs celecoxib 200 mg capsule (Celebrex) 200 mg PO BID PRN pain #60 caps 08/14/24 gabapentin 300 mg capsule 300 mg PO QHS #30 caps 09/03/24 methocarbamol 750 mg tablet mg 09/12/24 Current Visit Medications: Current Medications Generic Name Dose Route Start Last Admin Trade Name Bryce PRN Reason Stop Dose Admin Acetaminophen 1,000 mg 09/12/24 06:00 09/12/24 13:29 Acetaminophen 500 Mg Tab PO 09/12/24 23:59 1,000 mg PREOP NELL Administration Celecoxib 400 mg 09/12/24 06:00 09/12/24 13:29 Celecoxib 200 Mg Cap PO 09/12/24 23:59 400 mg PREOP NELL Administration Ringer's Solution 1,000 mls @ 80 mls/hr 09/12/24 06:00 09/12/24 13:40 IV 09/12/24 23:59 80 mls/hr INFUSION NELL Administration IV Miscellaneous Supplies 1 each 09/12/24 06:00 Iv Access IV 09/12/24 23:59 DIRECTED NELL Sodium Chloride 0 ml 09/12/24 06:00 Normal Saline Flush 10 Ml Syr IV 09/12/24 23:59 PRN PRN Sodium Chloride 0 ml 09/12/24 06:00 Normal Saline 10 Ml Vial IJ 09/12/24 23:59 DIRECTED PRN Sterile Water 0 ml 09/12/24 06:00 Water,Injection,Sterile 10 Ml Vial IJ 09/12/24 23:59 DIRECTED PRN PFSH Active Problems Active Problems: Problem Status Onset Code Arthrofibrosis of total knee arthroplasty Acute T84.82XA History of bilateral knee arthroplasty Acute 07/17/24 Z96.653 Bursitis of left shoulder Acute M75.52 Tendinitis of left rotator cuff Acute M75.82 Insomnia Acute G47.00 Left rotator cuff tear Acute M75.102 Skin lesions, generalized Acute L98.9 Impaired fasting glucose Acute R73.01 Obesity Chronic E66.9 Dizziness Acute R42 Encounter for annual physical exam Acute Z00.00 Dysphagia Acute R13.10 Obesity (BMI 30-39.9) Acute E66.9 BMI 37.0-37.9, adult Acute Z68.37 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 Acute B37.9 Osteoarthritis of right knee Chronic M17.11 Hyperplastic colon polyp Acute K63.5 Herpes zoster Acute B02.9 Vertigo Acute R42 Fatigue Acute 07/11/17 R53.83 Medical History Medical History Encounter for screening colonoscopy Annual physical exam Anemia (10/06/11) History of seizure (08/14/15) 10 years old Lateral epicondylitis of left elbow (08/14/15) Sebaceous cyst (02/10/15) Vertigo (08/14/15) Anemia 10/06/11 Sebaceous cyst 02/10/15 History of seizure 08/14/15 Left tennis elbow 08/14/15 Vertigo 08/04/15 Right rotator cuff tendonitis Right shoulder pain Vitamin D deficiency (10/06/11) Sleep apnea (10/17/14) [facility];SLEEP FRAGMENTATION Migraine without aura and without status migrainosus, not intractable (10/23/15) Insomnia disorder, with other sleep disorder, recurrent (08/16/16) Common bile duct stone (10/12/17) Chronic pain of left knee (08/14/15) 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) [facility] [place] Cervical pain (neck) (08/14/15) Calculus of gallbladder and bile duct w/cholecystitis w/o obstruction (10/12/17) Anxiety (06/17/16) Surgical History Surgical History History of bilateral knee replacement Hx of cholecystectomy History of arthroscopy of knee Left H/O arthroscopy of knee right x 2 ---1994; 2005 Repair, ACL (~2005) Right Tobacco Smoking/Tobacco Use Status: Never Passive smoking exposure: Yes (as a child) Second hand exposure: Yes (as a child) Alcohol Alcohol Intake: current Alcohol intake frequency: a few times a week Alcohol type: beer, wine and hard liquor Substance Use Substance use: Never Substance use type: does not use Details: alcohol: t-1, 1 oz vodka Vital Signs and Lab Results Vital Signs Most Recent Vital Signs in EMR: Most Recent Vital Signs Temp Pulse Resp BP Pulse Ox 36.5 C 73 18 114/68 100 09/12/24 13:20 09/12/24 13:20 09/12/24 13:20 09/12/24 13:20 09/12/24 13:20 Point of Care Results Point of Care Results: POC- Test(urine) Negative 09/12/24 13:19 Lab Results Blood Type / Crossmatch: No Data to Display Complete Blood Count: No Data to Display Complete Metabolic Panel: No Data to Display Liver Function Panel: No Data to Display Coagulation Panel: No Data to Display Cardiac Panel: No Data to Display Arterial Blood Gas: No Data to Display Venous Blood Gas: No Data to Display Pancreas Panel: No Data to Display Thyroid Panel: No Data to Display Infectious Disease: No Data to Display Blood Cultures: No Data to Display Toxicology Panel: No Data to Display Panel: No Data to Display Imaging and Studies Imaging and Studies Study information below may be from another EMR and interpreted by another provider. Please see original notes in EMR for more complete details. Stress Test Summary: STRESS TEST PATIENT NAME: ZULEYAM HINOJOSA #: [id number] ADMITTING PROVIDER: GARCIA VIERA,PhD,[facility] #: [id number] PRIMARY CARE PROVIDER:Raeann Edwards M.D., DCDATE OF SERVICE: 10/12/17 : 1970 *[facility]* *[facility]* [address] [place] [address] Stress Electrocardiography David protocol Date of study: 10/12/2017 *PATIENT PRESENTATION* Height: 172.7cm (68in) Blood Pressure: Weight: 107.3kg (236lb) BSA: 2.31m^2 Ordering physician: Raeann Edwards Impressions: Normal study after maximal exercise. Summary: 1. Stress ECG conclusions: The stress ECG is negative. Avila treadmill score: 10. This score predicts a low risk of cardiac events. 2. Stress: The target heart rate was achieved. The heart rate response to stress is normal. There is a normal resting blood pressure with an appropriate response to stress. The patient experienced no chest pain during stress. Exercise capacity is good (11 METS). Anesthesia Assessment and Plan Anesthesia History Personal History: No History of Anesthesia Complications Family History: No Family History of Anesthesia Complications Exercise Tolerance Exercise Tolerance: Metabolic Equivalents>4 Pertinent Negatives Pertinent Negatives: No Symptoms of GERD, No Major Cardiovascular Symptoms or Complaints, No Major Pulmonary Symptoms or Complaints and No History of CVA/TIA Cardiac & Pulmonary Exam Cardiac Exam: Normal S1/S2 Heart Sounds Pulmonary Exam: Clear Bilateral Breath Sounds Implantable Cardiac Device Does patient have a Pacemaker or an ICD?: No Airway Exam Known Difficult Airway: No Mallampati Class: 2 Mouth Opening: Normal (> 3cm) Thyromental Distance: Greater than 3 cm Neck Range of Motion: Full ROM Neck Circumference: Normal Teeth Condition: Normal Dentition ASA Classification ASA Score: ASA 2 Emergency Case?: No NPO Status NPO Status: NPO Clears >2 hours, Solids >8 hours Status Status: Not Relevant due to Medical History Anesthesia Plan Resuscitation Status: Full Code Anesthesia Technique: General Anesthesia Airway Planned: Natural Airway Monitors Used: Standard Monitors and SedLine
--- NOTE | 2024-09-12 13:56 | PDOC.DSDIS_ITS ---
Date of service: 09/12/24 Discharge Plan Disposition Patient Disposition: Home Condition: Good Discharge Details Reason For Visit: manipulation TKR Attending Provider: Anthony Duffy Primary Care Provider: Raeann Edwards Home Meds and New Rx's Prescriptions: Continued triamcinolone acetonide 0.1 % cream 1 applic topical BID Qty: 80 0RF Rx Instructions: apply to foot nystatin 100,000 unit/gram powder 1 applic topical BID Qty: 60 4RF multivitamin [Daily Multi-Vitamin] Tablet 1 tab PO DAILY fluorouracil [Efudex] 5 % cream 1 applic topical BID Qty: 40 0RF Rx Instructions: use BID daily for 7 days every 3-4 weeks for 3 months tirzepatide 7.5 mg/0.5 mL pen injector 7.5 mg subcut QWEEK MDD 7.5 28 Days Qty: 2 12RF Rx Instructions: Inject 7.5 mg subcutaneously once weekly as directed. celecoxib [Celebrex] 200 mg capsule 200 mg PO BID PRN (Reason: pain) Qty: 60 0RF Rx Instructions: Take one tablet twice daily for pain and inflammation gabapentin 300 mg capsule 300 mg PO QHS Qty: 30 0RF Rx Instructions: Take one tablet at bedtime methocarbamol 750 mg tablet Patient Comments: TAKE 1 TABLET BY MOUTH TWICE DAILY NEEDED FOR MUSCLE SPASMS acetaminophen 500 mg tablet 1,000 mg PO Q8H PRN Qty: 90 0RF Rx Instructions: Take two tablets up to every 8 hours as needed for pain Discharge Instructions Additional Instructions: Knee Manipulation Discharge Instructions Activity: You should begin moving as soon as possible. You may work on flexion but also equally maintain extension. You may bear weight as tolerated, using crutches only for support/comfort. You should apply ice to help with swelling and elevate when possible (especially in the first few days). Dressings: The Band-Aid may be removed after discharge. You may shower and get the wound wet at that time. Medications: - Rarely does this require any stronger pain medications. - Recommend to take up to 1000mg of Acetaminophen (Tylenol) and 600mg of Ibuprofen (Advil) every 8 hours as needed. These larger strength tablets were called in but you also may use [id number]. Follow-up: 7-10 days Referrals: Anthony Duffy MD [ [facility] STAFF PHYSICIAN] - Equipment/Supplies: Partial Weight Bearing Crutches Activity:: Activity as Tolerated Diet:: As Tolerated Discharge Orders Discharge Orders: Discharge Order (Routine); Ordered 09/12/24 Ordered By: German Mendez DS: Diagnosis Discharge Diagnosis (1) Arthrofibrosis of total knee arthroplasty: Status: Acute
[2024-09-12] MEDS: Bupivacaine 0.25% Pres-Free 30 ML VIAL (14:49)
--- NOTE | 2024-09-12 15:07 | ROE_ITS ---
Operative Note Operative Note PRE-OP DIAGNOSIS: Right Knee Arthrofibrosis s/p Replacement POST-OP DIAGNOSIS: same PROCEDURE: Right knee Manipulation Under Anesthesia Left knee manipulation under anesthesia SURGEON: Anthony Duffy ANESTHESIA TYPE: General:No Airway Refer to Anesthesia Record ESTIMATED BLOOD LOSS: 0 PATHOLOGY: none sent TOURNIQUET TIME: 0 COMPLICATIONS: None Patient was transported to: PACU Patient's condition: stable Indications: Shirlene is a 54-year-old female who is s/p bilateral knee replacement. Despite diligent work with physical therapy there has been continued stiffness, mostly involving the right knee. To assist with mobility, I offered a manipulation under anesthesia. I discussed the risks of the procedure to include bleeding, pain, recurrent stiffness, fracture. Despite these risks, she elected to proceed. Findings: The right knee manipulation was completed with premanipulation range of motion of 0 to 90 degrees. Manipulation was quite easy and she was able to gain nearly 125 to 130 degrees of flexion. I then compared this to the left side in the process of comparison of the left side there was some crepitus and release of scar tissue felt in the left knee. Therefore, since she was under anesthetic I completed the manipulation which also showed range of motion from 0 to 130 degrees. Procedure Description: The patient was greeted in the preoperative holding area. Identity was confirmed and the correct side was identified and marked. The consent was reviewed the patient and signed. History and physical was updated. Shirlene was taken back to the operating room. The right side was identified as the correct side. A timeout was performed for safe surgery. A general anesthetic was administered. The knee was then prepped with ChloraPrep and an intra-articular injection of 10 cc of 0.25% bupivacaine was administered. Once a muscle relaxant was fully on board manipulation was performed. Pre- manipulation range of motion was noted. A gentle manipulation was performed first into flexion using a very small lever arm and adding gentle and progressive pressure to the tibia. There is audible and palpable crepitus with improvement in range of motion. This was cycled and repeated multiple times. The leg was then brought into extension and gentle anterior posterior pressure was applied with a supported hand behind the proximal tibia and knee. This was brought back into flexion was once again manipulated with gentle and progressive pressure. Final range of motion numbers were recorded. I then compared this to the left side. The process comparing the left side and seeing the flexion she could obtain on the left side there was a notable crepitus and tearing sensation as expected with the manipulation. Therefore, I would have completed this manipulation with the muscle relaxant still on board. I was able to attain 130 degrees on the left side. Since this tissue unexpectedly was manipulated I decided to inject it as I did the right side with 10 cc of 0.25% bupivacaine. A Band-Aid was applied. Shirlene was awakened from anesthesia and taken to the PACU in stable condition. Date of Procedure: 09/12/24
[2024-09-12] MEDS: fentaNYL 100 MCG/2 ML VIAL IVP ×2 (15:08→15:15)
[2024-09-12] MEDS: Normal Saline 10 ML VIAL IJ (15:27)
[2024-09-12] MEDS: HYDROmorphone 2 MG/ML SYR IVP (15:27)
--- NOTE | 2024-09-12 15:37 | W.ANESPOSTOP ---
Postoperative Evaluation Date, Time and Location Date Performed: 09/12/24 Time Performed: 15:38 Patient Location: PACU Vital Signs Most Recent Imported Vital Signs: Most Recent Vital Signs Temp Pulse Resp BP Pulse Ox 36.7 C 68 15 122/71 100 09/12/24 15:00 09/12/24 15:31 09/12/24 15:31 09/12/24 15:31 09/12/24 15:31 Pain Score Most Recent Pain Score: Most Recent Pain Score Pain Level 10 09/12/24 15:05 Assessment Mental Status: Awake (Alert & Oriented to Patient Baseline) Airway and Respiratory Function: Patent airway with normal (patient baseline) respiratory exam Cardiovascular Function: Hemodynamically Stable Hydration Status: Adequately Hydrated Nausea & Vomiting: No Nausea or Vomiting Pain: Pain is Moderate or Severe Postoperative Pain Management: Pain being addressed with medication Peripheral Nerve Block: Patient did not receive a nerve block
[2024-09-12] MEDS: HYDROcodone 5/Acetaminophen 325 TAB PO (16:07)
== END 2024-09-12 16:50 | disposition home or self-care (01) ==
PROVIDERS: PCP Family Medicine; Visit Provider Student in an Organized Health Care Education/Training Program
PROC: (CPT 27570; principal; 2024-09-12 15:45)
DX: T84.82XA Fibrosis due to internal orthopedic prosthetic devices, implants and grafts, initial encounter (principal)
CPT/HCPCS: 27570; 81025; J0330; J0665; J1100; J1171; J2003; J2250; J2405; J2704; J3010

== ENCOUNTER 2024-12-24 11:10 | Outpatient (CLI) | payer BC, SELFPAY ==
--- NOTE | 2024-12-24 09:45 | DI.RAD_ITS ---
Exam(s) XR KNEE LT 3V AP,LAT,CHUCK EXAM: XR KNEE LT 3V AP,LAT,CHUCK CLINICAL HISTORY: eval L TKA. TECHNIQUE: 2D digital imaging was performed. Three images were obtained. AP, merchant's and lateral views were obtained. COMPARISON: CR XR KNEE LT 1V from 07/30/2024 CR XR STANDING ALIGNMENT from 07/30/2024 FINDINGS: BONES: There are stable post operative changes of a left total knee arthroplasty present. No fracture or dislocation. Enthesophytes are seen at the anterior patella. JOINTS: The orthopedic hardware is in good position. No evidence of hardware loosening. There is a small joint effusion. SOFT TISSUE: Normal. IMPRESSION: Stable left total knee arthroplasty. DATA REPOSITORY: RADIATION DOSE DELIVERED:
--- NOTE | 2024-12-24 09:45 | DI.RAD_ITS ---
Exam(s) XR KNEE RT 3V AP,LAT,CHUCK EXAM: XR KNEE RT 3V AP,LAT,CHUCK CLINICAL HISTORY: eval painful R TKA. TECHNIQUE: 2D digital imaging was performed. Three images were obtained. Lateral, AP and merchant's views were obtained. COMPARISON: CR XR STANDING ALIGNMENT from 07/10/2024 CR XR KNEE RT 1V from 07/10/2024 CR XR STANDING ALIGNMENT from 07/30/2024 CR XR KNEE RT 1V from 07/30/2024 FINDINGS: BONES: There are stable post operative changes of a right total knee arthroplasty present. No fracture or dislocation. There are findings of a prior ACL repair. JOINTS: The orthopedic hardware is in good position. No evidence of hardware loosening. SOFT TISSUE: Normal. IMPRESSION: Stable right total knee arthroplasty. DATA REPOSITORY: RADIATION DOSE DELIVERED:
== END 2024-12-24 11:11 | disposition home or self-care (01) ==
LOC: DIORS 11:10
PROVIDERS: PCP Family Medicine; Visit Provider Student in an Organized Health Care Education/Training Program
DX: T84.84XA Pain due to internal orthopedic prosthetic devices, implants and grafts, initial encounter (principal); Z96.652 Presence of left artificial knee joint; Z96.651 Presence of right artificial knee joint
CPT/HCPCS: 73562

== ENCOUNTER 2025-01-22 08:59 | Day surgery (SDC) | payer BC, SELFPAY ==
[2025-01-22] VITALS (25 sets, daily range): BP systolic 107–171; BP diastolic 65–90; PULSE 51–78; RESP 0–37; TEMP 36–36.6; O2SAT 89–100; BMI 30.7
[2025-01-22] MEDS: Acetaminophen 500 MG TAB 1000 MG PO (09:32)
[2025-01-22] MEDS: Gabapentin 300 MG CAP PO (09:32)
[2025-01-22] MEDS: Celecoxib 200 MG CAP 400 MG PO (09:32)
[2025-01-22] MEDS: Lactated Ringers 1,000 ML 80 ML IV (09:40)
--- NOTE | 2025-01-22 09:50 | W.ANESPRE ---
General Info Date of Service Date Performed: 01/22/25 Height: 5 ft 8 in Weight: 91.7 kg Body Mass Index (BMI): 30.7 Surgical Procedure: Operation Date: 01/22/25 11:25 Proposed Procedure Side Surgeon p Knee Arthroscopy, Synovectomy Bilateral Anthony Duffy MD Meds Allergies and Home Medications Allergies Allergy/AdvReac Type Severity Reaction Status Date / Time No Known Allergies Allergy Verified 01/22/25 09:20 Home Medication ?Medication ?Instructions ?Recorded multivitamin (Daily Multi-Vitamin 1 tab PO DAILY 04/20/21 tablet) nystatin 100,000 unit/gram topical 1 applic topical BID #60 grams 08/31/21 powder triamcinolone acetonide 0.1 % 1 applic topical BID #80 grams 08/31/21 topical cream fluorouracil 5 % topical cream 1 applic topical BID #40 grams 09/20/23 (Efudex) acetaminophen 500 mg tablet 1,000 mg (2 x 500 mg) PO Q8H PRN 07/17/24 pain #90 tabs tirzepatide 5 mg/0.5 mL 5 mg (0.5 mL) subcut QWEEK 28 days 10/22/24 subcutaneous pen injector #8 mL celecoxib 200 mg capsule See Rx Instructions .Route 12/14/24 .COMPLEX #60 caps Current Visit Medications: Current Medications Generic Name Dose Route Start Last Admin Trade Name Freq PRN Reason Stop Dose Admin Acetaminophen 1,000 mg 01/22/25 06:00 01/22/25 09:32 Acetaminophen 500 Mg Tab PO 01/22/25 23:59 1,000 mg PREOP NELL Administration Celecoxib 400 mg 01/22/25 06:00 01/22/25 09:32 Celecoxib 200 Mg Cap PO 01/22/25 23:59 400 mg PREOP NELL Administration Gabapentin 300 mg 01/22/25 06:00 01/22/25 09:32 Gabapentin 300 Mg Cap PO 01/22/25 23:59 300 mg PREOP NELL Administration Ringer's Solution 1,000 mls @ 80 mls/hr 01/22/25 06:00 01/22/25 09:40 IV 01/22/25 23:59 80 mls/hr INFUSION NELL Administration Cefazolin Sodium/Dextrose 2 gm in 50 mls @ 100 mls/hr 01/22/25 06:00 Ancef Duplex IVPB 01/22/25 23:59 PREOP NELL Tranexamic Acid/Sodium Chloride 1,000 mg in 100 mls @ 600 mls/hr 01/22/25 06:00 IVPB 01/22/25 23:59 PREOP NELL IV Miscellaneous Supplies 1 each 01/22/25 06:00 Iv Access IV 01/22/25 23:59 DIRECTED NELL Sodium Chloride 0 ml 01/22/25 06:00 Normal Saline Flush 10 Ml Syr IV 01/22/25 23:59 PRN PRN Sodium Chloride 0 ml 01/22/25 06:00 Normal Saline 10 Ml Vial IJ 01/22/25 23:59 DIRECTED PRN Sterile Water 0 ml 01/22/25 06:00 Water,Injection,Sterile 10 Ml Vial IJ 01/22/25 23:59 DIRECTED PRN PFSH Active Problems Active Problems: Problem Status Onset Code Painful total knee replacement, right Acute T84.84XA, Z96.651 Painful total knee replacement, left Acute T84.84XA, Z96.652 Arthrofibrosis of total knee arthroplasty Acute T84.82XA History of bilateral knee arthroplasty Acute 07/17/24 Z96.653 Bursitis of left shoulder Acute M75.52 Tendinitis of left rotator cuff Acute M75.82 Insomnia Acute G47.00 Left rotator cuff tear Acute M75.102 Skin lesions, generalized Acute L98.9 Impaired fasting glucose Acute R73.01 Obesity Chronic E66.9 Dizziness Acute R42 Encounter for annual physical exam Acute Z00.00 Dysphagia Acute R13.10 Obesity (BMI 30-39.9) Acute E66.9 BMI 37.0-37.9, adult Acute Z68.37 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 Acute B37.9 Osteoarthritis of right knee Chronic M17.11 Hyperplastic colon polyp Acute K63.5 Herpes zoster Acute B02.9 Vertigo Acute R42 Fatigue Acute 07/11/17 R53.83 Medical History Medical History Encounter for screening colonoscopy Annual physical exam Anemia (10/06/11) History of seizure (08/14/15) 10 years old Lateral epicondylitis of left elbow (08/14/15) Sebaceous cyst (02/10/15) Vertigo (08/14/15) Anemia 10/06/11 Sebaceous cyst 02/10/15 History of seizure 08/14/15 Left tennis elbow 08/14/15 Vertigo 08/04/15 Right rotator cuff tendonitis Right shoulder pain Vitamin D deficiency (10/06/11) Sleep apnea (10/17/14) [facility];SLEEP FRAGMENTATION Migraine without aura and without status migrainosus, not intractable (10/23/15) Insomnia disorder, with other sleep disorder, recurrent (08/16/16) Common bile duct stone (10/12/17) Chronic pain of left knee (08/14/15) 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) [facility] [place] Cervical pain (neck) (08/14/15) Calculus of gallbladder and bile duct w/cholecystitis w/o obstruction (10/12/17) Anxiety (06/17/16) Medical History Comments:: hx bladder retention Surgical History Surgical History History of bilateral knee replacement Hx of cholecystectomy History of arthroscopy of knee Left H/O arthroscopy of knee right x 2 ---1994; 2005 Repair, ACL (~2005) Right Tobacco Smoking/Tobacco Use Status: Never Passive smoking exposure: Yes (as a child) Second hand exposure: Yes (as a child) Alcohol Alcohol Intake: current Alcohol intake frequency: 0-2 drinks per day Alcohol type: beer, wine and hard liquor Substance Use Substance use: Never Substance use type: does not use Details: alcohol: t-1, 1 oz vodka Vital Signs and Lab Results Vital Signs Most Recent Vital Signs in EMR: Most Recent Vital Signs Temp Pulse Resp BP Pulse Ox 36.6 C 68 16 115/72 100 01/22/25 09:08 01/22/25 09:08 01/22/25 09:08 01/22/25 09:08 01/22/25 09:08 Point of Care Results Point of Care Results: POC- Test(urine) Negative 01/22/25 09:36 Imaging and Studies Imaging and Studies Study information below may be from another EMR and interpreted by another provider. Please see original notes in EMR for more complete details. Stress Test Summary: STRESS TEST PATIENT NAME: ZULEYMA HINOJOSA #: [id number] ADMITTING PROVIDER: GARCIA VIERA,PhD,[facility] #: [id number] PRIMARY CARE PROVIDER:Raeann Edwards M.D., DCDATE OF SERVICE: 10/12/17 : 1970 *[facility]* *[facility]* [address] [place] [address] Stress Electrocardiography David protocol Date of study: 10/12/2017 *PATIENT PRESENTATION* Height: 172.7cm (68in) Blood Pressure: Weight: 107.3kg (236lb) BSA: 2.31m^2 Ordering physician: Raeann Edwards Impressions: Normal study after maximal exercise. Summary: 1. Stress ECG conclusions: The stress ECG is negative. Avila treadmill score: 10. This score predicts a low risk of cardiac events. 2. Stress: The target heart rate was achieved. The heart rate response to stress is normal. There is a normal resting blood pressure with an appropriate response to stress. The patient experienced no chest pain during stress. Exercise capacity is good (11 METS). Anesthesia Assessment and Plan Anesthesia History Personal History: No History of Anesthesia Complications Family History: No Family History of Anesthesia Complications Exercise Tolerance Exercise Tolerance: Metabolic Equivalents>4 Pertinent Negatives Pertinent Negatives: No Symptoms of GERD, No Major Cardiovascular Symptoms or Complaints, No Major Pulmonary Symptoms or Complaints and No History of CVA/TIA Cardiac & Pulmonary Exam Cardiac Exam: Normal S1/S2 Heart Sounds Pulmonary Exam: Clear Bilateral Breath Sounds Implantable Cardiac Device Does patient have a Pacemaker or an ICD?: No Airway Exam Known Difficult Airway: No Mallampati Class: 2 Mouth Opening: Normal (> 3cm) Thyromental Distance: Greater than 3 cm Neck Range of Motion: Full ROM Neck Circumference: Normal Teeth Condition: Normal Dentition ASA Classification ASA Score: ASA 2 Emergency Case?: No NPO Status NPO Status: NPO Clears >2 hours, Solids >8 hours Status Status: Not Relevant due to Medical History Anesthesia Plan Resuscitation Status: Full Code Anesthesia Technique: General Anesthesia Airway Planned: LMA Monitors Used: Standard Monitors Preoperative Comments:: Tirzepatide last dose 3 weeks ago
[2025-01-22] MEDS: ceFAZolin 2 GM/50 ML BAG IVPB (10:14)
[2025-01-22] MEDS: TRANEXAMIC ACID/SOD. CHL. 1,000 MG/100 ML BAG 600 MG IVPB (10:24)
--- NOTE | 2025-01-22 10:43 | W.PM.DSUDISC ---
Date of service: 01/22/25 Discharge Plan Disposition Patient Disposition: Home Condition: Good Discharge Details Reason For Visit: Bilateral knee arthrofibrosis; s/p bilateral TKAs Attending Provider: Anthony Duffy Primary Care Provider: Raeann Edwards Home Meds and New Rx's Prescriptions: New acetaminophen 500 mg tablet 500 mg PO Q6H PRN (Reason: pain) Qty: 60 2RF celecoxib [Celebrex] 200 mg capsule 200 mg PO BID PRNQty: 60 0RF Rx Instructions: Take one tablet twice daily for pain and inflammation hydrocodone-acetaminophen 5-325 mg tablet 1 tab PO Q6H PRN (Reason: severe pain) Qty: 6 0RF Rx Instructions: Take one tablet up to every 6 hours as needed for severe postoperative pain Continued triamcinolone acetonide 0.1 % cream 1 applic topical BID Qty: 80 0RF Rx Instructions: apply to foot nystatin 100,000 unit/gram powder 1 applic topical BID Qty: 60 4RF multivitamin [Daily Multi-Vitamin] Tablet 1 tab PO DAILY fluorouracil [Efudex] 5 % cream 1 applic topical BID Qty: 40 0RF Rx Instructions: use BID daily for 7 days every 3-4 weeks for 3 months tirzepatide 5 mg/0.5 mL pen injector 5 mg subcut QWEEK MDD 5 28 Days Qty: 8 12RF Discontinued celecoxib 200 mg capsule See Rx Instructions .ROUTE .COMPLEX Qty: 60 0RF Dose Instruction: TAKE 1 CAPSULE(200 MG) BY MOUTH TWICE DAILY NEEDED FOR PAIN OR PAIN AND INFLAMMATION Rx Instructions: TAKE 1 CAPSULE(200 MG) BY MOUTH TWICE DAILY NEEDED FOR PAIN OR PAIN AND INFLAMMATION acetaminophen 500 mg tablet 1,000 mg PO Q8H PRN Qty: 90 0RF Rx Instructions: Take two tablets up to every 8 hours as needed for pain Discharge Instructions Stand Alone Forms: [facility] Knee Arthroscopy Equipment/Supplies: Partial Weight Bearing Crutches Activity:: Elevate Remove Dressings/Wound Care:: 48 hours Shower/Bathe:: 48 hours Diet:: As Tolerated Discharge Orders Discharge Orders: Discharge Order (Routine); Ordered 01/22/25 Ordered By: Shireen Mccarty
[2025-01-22] MEDS: EPINEPHrine 10 MG/10 ML ML (10:47)
[2025-01-22] MEDS: Bupivacaine 0.25% Pres-Free 30 ML VIAL (11:06)
[2025-01-22] MEDS: HYDROmorphone 2 MG/ML SYR IVP ×2 (11:51→12:03)
--- NOTE | 2025-01-22 12:13 | ROE_ITS ---
Operative Note Operative Note PRE-OP DIAGNOSIS: Arthrofibrosis of Knee Replacement - Bilateral POST-OP DIAGNOSIS: same PROCEDURE: Arthroscopic Synovectomy of 3 Compartments with Manipulation - Bilateral Knees SURGEON: Anthony Duffy ANESTHESIA TYPE: General LMA/ETT Refer to Anesthesia Record ESTIMATED BLOOD LOSS: 10 PATHOLOGY: none sent COMPLICATIONS: None Patient was transported to: PACU Patient's condition: stable Indications: I have seen Shirlene in clinic for symptoms of arthrofibrosis of both knees, right worse than left, following knee replacement surgery. Nonoperative measures were exhausted but disability due to lack of motion persisted. I discussed knee arthroscopy with synovectomy with maniuplation with the patient. I reviewed the risks of the procedure to include, but not limited to, bleeding, infection, pain, continued stiffness, recurrence, blood clot. Despite these risks, the patient elected to proceed. Findings: RIGHT KNEE: Preoperative Range of Motion: Flexion: 90 Extension:10 Postoperative Range of Motion: Flexion:125 Extension:5 LEFT KNEE: Preoperative Range of Motion: Flexion: 110 Extension:5 Postoperative Range of Motion: Flexion:130 Extension:5 Procedure Description: Shirlene was greeted in the preoperative holding area where the correct side was identified and marked. The consent was reviewed with the patient and signed. The history and physical was updated. All questions were answered. Shirlene was taken back to the operating room. The patient was placed into the supine position on the operating room table. All bony prominences were well padded. Prophylactic antibiotics in the form of Cefazolin were administered. Preoperative range of motion was assessed as 10 - 90 on the right and 5-110 on the left. Then, both legs were prepped with Chloraprep and draped in a standard fashion with stockinette and bilateral extremity drape. A timeout to confirm correct identity, site, procedure, allergies, anesthesia, and medical concerns was performed. RIGHT KNEE: A standard lateral portal was made at the lateral border of the patella tendon in line with the inferior pole of the patella, soft spot. The skin and deep tis deb was incised sharply and the blunt trochar was inserted atraumatically. At this point had visualization of the femoral component. A superolateral portal was then established with spinal needle localization just superior and lateral to the patella. A knife was taken down through the skin and soft tissue to enter the knee joint. Starting in the superior compartment above the femoral component and anterior to the femur I released all scarring between the anterior femoral synovium and the overlying extensor mechanism. There is a dense layer of scar tissue in this region which obscured visualization superiorly. This debridement was taken through all of any noticeable scar tissue until the superior patellar pouch was fully released and mobile. This resection was carried out mostly with electrocautery and then debulked with shaver. Once this was released fully from lateral to medial superiorly I then continue working down the lateral gutter. All scar tissue in the lateral gutter was released so there is normal space and movement between the capsular tissues and the edge of the femoral component and femur. This was taken down through the lateral gutter such that I was able to identify the polyethylene to its posterior corner. Once again, all scar tissue in this area was resected so the polyethylene was easily visible and there is no interposed tissue in the back or the polyethylene was identified. I continued to work anteriorly. To continue the synovectomy from the lateral compartment to the anterior compartment into the medial compartment, I placed a medial portal under spinal needle localization. Once this was in place it became another working portal and I continued the synovectomy through the anterior compartment to the medial compartment. Once again, I freed up the medial gutter so I was able to visualize the polyethylene from the anterior posterior margins. There is no interposed tissue after full synovectomy was performed. Adhesions between the capsule and the femur were released. This was continued up the medial gutter until it met up with the releases performed previously in the superior compartment. Any remnant scar tissue from around the patella was then removed with a shaver and electrocautery. The arthroscope was brought back into the suprapatellar pouch and the leg was in full extension. The knee was thoroughly irrigated with the arthroscopic fluid on high flow and pressure. Inflow was stopped and excess fluid was removed. Manipulation was performed. I first push the knee into flexion and was able to obtain 125 degrees. I then worked the knee into extension, slowly applying an anterior to posterior directed pressure with support of the knee and no significant lever arm. This was cycled multiple times until I was able to obtain extension of 5 degrees. The wounds were closed with 4-0 Nylon. 0.25% bupivacaine was injected around the portal sites and into the knee. LEFT KNEE: Attention was then turned to the left knee. A standard lateral portal was made at the lateral border of the patella tendon in line with the inferior pole of the patella, soft spot. The skin and deep tissue was incised sharply and the blunt trochar was inserted atraumatically. At this point had visualization of the femoral component. A superolateral portal was then established with spinal needle localization just superior and lateral to the patella. A knife was taken down through the skin and soft tissue to enter the knee joint. Starting in the superior compartment above the femoral component and anterior to the femur I released all scarring between the anterior femoral synovium and the overlying extensor mechanism. This was taken through all of any noticeable scar tissue until the superior patellar pouch was fully released and mobile. The tissue in this region was not as dense as it was on the right side. This resection was carried out mostly with electrocautery as well as shaver. Once this was released fully from lateral to medial superiorly I then continue working down the lateral gutter. All scar tissue in the lateral gutter was released so there is normal space and movement between the capsular tissues and the edge of the femoral component and femur. This was taken down through the lateral gutter such that I was able to identify the polyethylene to its posterior corner. Once again, all scar tissue in this area was resected so the polyethylene was easily visible and there is no interposed tissue in the back or the polyethylene was identified. I continued to work anteriorly. To continue the synovectomy from the lateral compartment to the anterior compartment into the medial compartment, I placed a medial portal under spinal needle localization. Once this was in place it became another working portal and I continued the synovectomy through the anterior compartment to the medial compartment. Once again, I freed up the medial gutter so I was able to visualize the polyethylene from the anterior posterior margins. There is no interposed tissue after full synovectomy was performed. Adhesions between the capsule and the femur were released. This was continued up the medial gutter until it met up with the releases performed previously in the superior compartment. Any remnant scar tissue from around the patella was then removed with a shaver and electrocautery. The arthroscope was brought back into the suprapatellar pouch and the leg was in full extension. The knee was thoroughly irrigated with the arthroscopic fluid on high flow and pressure. Inflow was stopped and excess fluid was removed. The leg was removed from the spider leg felton and manipulation was performed. I first push the knee into flexion and was able to obtain 130 degrees. I then worked the knee into extension, slowly applying an anterior to posterior directed pressure with support of the knee and no significant lever arm. This was cycled multiple times until I was able to obtain extension of 5 degrees. The wounds were closed with 4-0 Nylon. 0.25% bupivacaine was injected around the portal sites and into the knee. The wounds were dressed with Xeroform, 4x4 gauze, ABD pad, Kerlix and an NISSA wrap. A cryo-cuff was applied. The patient tolerated the procedure well and was returned to the Same Day Surgery area in a stable condition suffering no known complication.. Date of Procedure: 01/22/25
--- NOTE | 2025-01-22 12:35 | W.ANESPOSTOP ---
Postoperative Evaluation Date, Time and Location Date Performed: 01/22/25 Time Performed: 12:35 Patient Location: PACU Vital Signs Most Recent Imported Vital Signs: Most Recent Vital Signs Temp Pulse Resp BP Pulse Ox 36.4 C L 60 11 L 150/86 H 100 01/22/25 12:20 01/22/25 12:21 01/22/25 12:21 01/22/25 12:21 01/22/25 12:21 Pain Score Most Recent Pain Score: Most Recent Pain Score Pain Level 10 01/22/25 12:20 Assessment Mental Status: Awake (Alert & Oriented to Patient Baseline) Airway and Respiratory Function: Patent airway with normal (patient baseline) respiratory exam Cardiovascular Function: Hemodynamically Stable Hydration Status: Adequately Hydrated Nausea & Vomiting: No Nausea or Vomiting Pain: Pain is Moderate or Severe Postoperative Pain Management: Pain being addressed with medication Peripheral Nerve Block: Patient did not receive a nerve block
[2025-01-22] MEDS: HYDROcodone 5/Acetaminophen 325 TAB PO (12:58)
== END 2025-01-22 13:48 | disposition home or self-care (01) ==
PROVIDERS: PCP Family Medicine; Visit Provider Student in an Organized Health Care Education/Training Program
PROC: (CPT 29870; principal; 2025-01-22 11:15)
DX: T84.82XA Fibrosis due to internal orthopedic prosthetic devices, implants and grafts, initial encounter (principal); D64.9 Anemia, unspecified; E55.9 Vitamin D deficiency, unspecified; E66.9 Obesity, unspecified
CPT/HCPCS: 29876; 81025; J0665; J0690; J1100; J1171; J2003; J2405; J2704

== ENCOUNTER 2025-03-04 08:23 | Outpatient (CLI) | payer BC, SELFPAY ==
[2025-03-04 09:25] LABS: Vitamin B12 382 pg/mL (193-986)
[2025-03-04 19:47] LABS: Hepatitis C Ab w Rflx HCV PCR Negative (Negative)
== END 2025-03-04 08:24 | disposition home or self-care (01) ==
LOC: LBO 08:29
PROVIDERS: PCP Family Medicine; Visit Provider Family Medicine
DX: R53.83 Other fatigue (principal); Z11.59 Encounter for screening for other viral diseases
CPT/HCPCS: 36415; 86803; 82607

== ENCOUNTER → 2025-04-22 00:34 | Outpatient (CLI) | payer BC, SELFPAY ==
--- NOTE | 2025-04-22 06:15 | DI.MRI_ITS ---
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 COMPARISON: MR MRI - BRAIN WO CONTRAST from 06/06/2014 CT HEAD WITHOUT CONTRAST from 08/12/2015 FINDINGS: VENTRICLES AND EXTRA AXIAL SPACES: Normal in size and morphology for the patient's age. MIDLINE SHIFT: None. CEREBRAL PARENCHYMA: No focus of restricted diffusion to suggest acute infarct. No space-occupying lesion identified. HEMORRHAGE: None. BRAINSTEM/CEREBELLUM: Normal. CALVARIUM: Normal. VISUALIZED PARANASAL SINUSES/MASTOIDS:Clear. QUILEUTE OF GOLD: Normal flow void. PITUITARY GLAND: Unremarkable. OTHER FINDINGS: None. IMPRESSION: Unremarkable MRI of the brain. DATA REPOSITORY:
== END ==
LOC: DI 00:34
PROVIDERS: PCP Family Medicine; Visit Provider Family Medicine
DX: R51.9 Headache, unspecified (principal); Q75.9 Congenital malformation of skull and face bones, unspecified
CPT/HCPCS: 70551